=== PATIENT | male | born 1945 | race Caucasian/White ===

== ENCOUNTER 2016-10-03 15:33 | Inpatient (IN) | payer MEDICARE ==
[2016-10-03] MEDS ORDERED: Magnesium Sulfate 2 GM/100 ML BAG ONE (15:53)
[2016-10-03] MEDS ORDERED: methylPREDNISolone Sod Succ/PF 125 MG/2 ML VIAL ONE (15:53)
[2016-10-03 15:59] LABS: #Basophils 0.1 thou/uL (0.0-0.2); #Eosinphils 0.4 thou/uL (0.0-0.7); #Lymphocytes 2.2 thou/uL (1.20-3.40); #Monocytes 0.9 thou/uL (0.11-0.59); #Neutrophils 7.8 thou/uL (1.40-6.50); %Basophils 0.7 % (0.0-1.0); Mean Platelet Volume 8.2 fL (7.4-10.4); Red Blood Cell (RBC) Count 4.68 mill/uL (4.70-6.10); White Blood Cell (WBC) Count 11.4 thou/uL (4.8-10.8)
[2016-10-03 16:13] LABS: ALT (SGPT) 22 U/L (0-55); AST (SGOT) 26 U/L (5-34); Alkaline Phosphatase 124 U/L (40-150); Anion Gap 14 mmol/L (10-20); BUN (Urea Nitrogen) 17 mg/dL (8.4-25.7); Bilirubin, Total 0.5 mg/dL (0.2-1.2); Calc. Creatinine Clearance 0 mL/min (70-130); Calcium 9.4 mg/dL (7.8-10.44); Carbon Dioxide 30 mmol/L (23-31); Chloride 99 mmol/L (98-107); Estimated GFR-MDRD 72; Globulin 3.7 g/dL (2.4-3.5); Protein, Total 7.5 g/dL (5.8-8.1)
[2016-10-03] MEDS ORDERED: Sodium Chloride 0.9% 100 ML ONE (16:18)
[2016-10-03] MEDS ORDERED: cefTRIAXone\\ROCEPHIN 1 GM VIAL ONE (16:18)
[2016-10-03 16:20] LABS: Troponin I 0.011 ng/mL (< 0.028)
--- NOTE | 2016-10-03 17:48 | ERRECORD ---
[facility] EMERGENCY RECORD HPI SHORTNESS OF BREATH (15:52 JPIP) CHIEF COMPLAINT: Patient presents for evaluation of shortness of breath. HISTORIAN: History provided by patient. LOCATION: Symptoms are generalized. QUALITY: Symptoms described as tightness, an elephant is sitting on my chest. SEVERITY: Current severity of pain rated as 5/10. TIME COURSE: Gradual onset of symptoms, 4, days priror to arrival. ASSOCIATED WITH: Associated with cough, Associated with dyspnea on exertion, No associated fever, Associated with increased inhaler use, Associated with nausea, No associated vomiting, decreased appetite. EXACERBATED BY: Patient's condition exacerbated by exercise. RELIEVED BY: Patient's condition relieved by nothing. ROS (15:53 JPIP) CONSTITUTIONAL: Historian reports fatigue. CARDIOVASCULAR: Historian reports chest pain, pleuritic, Historian reports dyspnea on exertion, denies palpitations. RESPIRATORY: Historian reports cough, reports sputum. described as thick. GI: Historian reports anorexia, reports appetite changes, reports nausea, denies vomiting. MUSCULOSKELETAL: Historian denies myalgias. SKIN: Historian denies rash, denies skin changes, denies skin lesions. NEUROLOGIC: Historian denies confusion, denies mental status changes. NOTES: All systems reviewed, negative except as described above. PAST MEDICAL HISTORY MEDICAL HISTORY: Flu vaccine up to date, Tetanus immunization up to date, Pneumococcal vaccine up to date, Notes: ARTHRITIS, CHRONIC BACK AND NECK PAIN, , Past medical history includes pulmonary disease, chronic obstructive pulmonary disease. hernias. (15:52 KMOR) MALE SURGICAL HISTORY: Surgical history of hernia repair, Notes x2, BACK X4, R SHOULDER REPLACEMENT. exploratory lap. (15:52 KMOR) PSYCHIATRIC HISTORY: Psychiatric history includes, depression. (15:52 KMOR) SOCIAL HISTORY: Patient denies alcohol use, Patient denies drug use, Patient is a former tobacco user, Lives at home. (15:52 KMOR) NOTES: Nursing records reviewed, Medication list reviewed. (15:55 JPIP) KNOWN ALLERGIES Hyoscamine &a-1R&a+25V*p+0X*[id number]*c152B*c15G*c2P*p-0X&a-25V&a+1RName: Gunner Darling : 1945 M70 MedRec: [id number] AcctNum: [id number] Prepared: Sharifa Oct 03, 2016 17:46 by Interface Page 1 of 5 pMD [facility] EMERGENCY RECORD iodine Latex, Natural Rubber CURRENT MEDICATIONS Nitrostat: TABLET, SUBLINGUAL : Strength - 0.4 mg : SUBLINGUAL Patient Dose: 0.4 mg Oral As Needed. (15:43 KMOR) alfuzosin: TABLET, EXTENDED RELEASE 24 HR : Strength - 10 mg : ORAL Patient Dose: 10 mg Oral once a day. (15:43 KMOR) atorvastatin: TABLET : Strength - 80 mg : ORAL Patient Dose: 80 mg Oral once a day. (15:43 KMOR) cyproheptadine: TABLET : Strength - 4 mg : ORAL Patient Dose: 4 mg Oral once a day. (15:43 KMOR) guaiFENesin: CAPSULE : Strength - 200 mg : ORAL Patient Dose: 400 mg Oral 2 times a day. (15:43 KMOR) hydrochlorothiazide: CAPSULE : Strength - 12.5 mg : ORAL Patient Dose: 25 mg Oral once a day. (15:43 KMOR) ranitidine HCl: CAPSULE : Strength - 150 mg : ORAL Patient Dose: 150 mg Oral 2 times a day. (15:43 KMOR) eszopiclone: TABLET : Strength - 2 mg : ORAL Patient Dose: 2 mg Oral once a day (at bedtime). (15:43 KMOR) docusate sodium: CAPSULE : Strength - 50 mg : ORAL Patient Dose: 50 mg Oral. (15:46 KMOR) busPIRone: TABLET : Strength - 10 mg : ORAL Patient Dose: 10 mg Oral 2 times a day. (15:46 KMOR) aspirin: TABLET : Strength - 325 mg : ORAL Patient Dose: 81 mg Oral once a day. (17:01 KMOR) PARoxetine HCl: TABLET : Strength - 40 mg : ORAL Patient Dose: 40 mg Oral once a day. (17:03 KMOR) multivitamin: TABLET : ORAL Patient Dose: 1 tab(s) null once a day. (17:04 KMOR) Asmanex Twisthaler: AEROSOL POWDER, BREATH ACTIVATED (EA) : Strength - 220 mcg (120 doses) : INHALATION Patient Dose: 1 puff(s) Inhaler 2 times a day. (17:05 KMOR) Combivent: AEROSOL WITH ADAPTER (GRAM) : Strength - 18 mcg-103 mcg (90 mcg)/actuation : INHALATION &a-1R&a+25V*p+0X*r1573Z*c152B*c15G*c2P*p-0X&a-25V&a+1RName: Gunner Darling : 1945 M70 MedRec: [id number] AcctNum: [id number] Prepared: Sharifa Oct 03, 2016 17:46 by Interface Page 2 of 5 pMD [facility] EMERGENCY RECORD Patient Dose: 2 puff(s) Inhaler 2 times a day. (17:08 KMOR) [place]: TABLET : Strength - 10 mg-325 mg : ORAL Patient Dose: 1 tab(s) Oral 2 times a day.as needed. (17:09 KMOR) budesonide: AMPUL FOR NEBULIZATION (ML) : Strength - 0.25 mg/2 mL : INHALATION Patient Dose: 1 units Nebulize 2 times a day. (17:10 KMOR) Brovana: VIAL, NEBULIZER (ML) : Strength - 15 mcg/2 mL : INHALATION Patient Dose: 1 units Nebulize 2 times a day. (17:10 KMOR) VITAL SIGNS VITAL SIGNS: BP: 104/76, Pulse: 88, Resp: 24, Temp: 99.1 (Oral), Pain: 5, O2 sat: 92 on 3L Oxygen, Time: 10/03/2016 15:47. (15:47 KMOR) BP: 118/69, Pulse: 83, Resp: 23, Pain: 5, O2 sat: 93 on 3L Oxygen, Time: 10/03/2016 16:15. (16:15 KMOR) BP: 120/73, Pulse: 77, Resp: 22, Pain: 5, O2 sat: 91 on 3L Oxygen, Time: 10/03/2016 16:45. (16:45 KMOR) BP: 141/77, Pulse: 83, Resp: 20, Pain: 5, O2 sat: 92 on 3L Oxygen, Time: 10/03/2016 17:00. (17:00 KMOR) BP: 124/78, Pulse: 78, Resp: 19, Temp: 98.3 (Oral), Pain: 5, O2 sat: 93 on 3L Oxygen, Time: 10/03/2016 17:15. (17:15 KMOR) PHYSICAL EXAM (15:54 JPIP) CONSTITUTIONAL: Vital Signs Reviewed, Patient afebrile, Pulse normal, Blood pressure normal, Respiratory rate, increased, Abnormal Pulse Oximetry, 92% on 3L NC, Patient appears, uncomfortable, Patient alert and oriented to person, place and time, Nursing notes reviewed. HEAD: Head exam included findings of head atraumatic, normocephalic. EYES: Eye exam included findings of eyelids normal to inspection, Conjunctiva normal, Sclera normal, no periorbital ecchymosis, no periorbital edema, no periorbital erythema. NECK: Neck exam included findings of normal range of motion, Trachea midline, no carotid bruits, no jugular venous distention, no cervical adenopathy, no tenderness. RESPIRATORY CHEST: Respiratory exam included findings of, mild respiratory distress, Breath sounds not clear, No wheezing, No rhonchi, Breath sounds diminished. CARDIOVASCULAR: Cardiovascular exam included findings of heart rate regular rate and rhythm, Heart sounds normal, no murmurs, no rub. ABDOMEN MALE: Abdominal exam included findings of abdomen tender, to the right upper quadrant, mild intensity, Liver normal, Spleen normal, Distension present, no mass, no pulsatile masses, no peritoneal signs, no rigidity, no guarding, no rebound. BACK: no costovertebral angle tenderness. &a-1R&a+25V*p+0X*s4630T*c152B*c15G*c2P*p-0X&a-25V&a+1RName: Gunner Darling : 1945 M70 MedRec: [id number] AcctNum: [id number] Prepared: Sharifa Oct 03, 2016 17:46 by Interface Page 3 of 5 pMD [facility] EMERGENCY RECORD UPPER EXTREMITY: Upper extremity exam included findings of inspection normal, Range of motion normal. LOWER EXTREMITY: Lower extremity exam included findings of inspection normal, Range of motion normal, no edema. NEURO: [place] coma scale 15, Neuro exam findings include patient oriented to person, place and time, no focal motor deficits. SKIN: Skin exam included findings of skin warm, dry, and normal in color. LYMPHATIC: Lymphatic exam included findings of cervical nodes normal, Submandibular normal. PSYCHIATRIC: Psychiatric exam included findings of patient oriented to person place and time, Normal affect. EKG INTERPRETATION (15:56 JPIP) MONITOR STRIP: monitoring engineer strip interpreted by Emergency Department Physician, Monitor strip shows normal sinus rhythm, with no ectopics. 12 LEAD EKG INTERPRETATION: 12 lead EKG interpreted by Emergency Department Physician at time of study, 12 lead EKG shows normal sinus rhythm, Rate (beats per minute): 82, with no ectopics, Conduction with, complete right bundle branch block, ST segments normal, T waves, inverted, Areas affected: anterior leads, [place], left, Clinical impression:, non-specific EKG. RADIOLOGYINTERPRETATION (16:15 JPIP) CHEST: Films of the chest show, no infiltrate, no pneumothorax, no hemothorax, no pleural effusion, no cardiomegaly, chronic obstructive pulmonary disease, Other findings: left upper lobe scarring. 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 MEDICATION ADMINISTRATION SUMMARY Drug Name: Rocephin injection, Dose Ordered: 2 g, Route: IV Piggy Back, Status: Given, Time: 16:26 10/03/2016, Drug Name: magnesium sulfate in water, Dose Ordered: 2 g, Route: IV Piggy Back, Status: Given, Time: 16:05 10/03/2016, Drug Name: Normal Saline, Dose Ordered: 150 mL/hr, Route: IV Fluid Infusion, Status: Given, Time: 16:00 10/03/2016, Drug Name: *DuoNeb, Dose Ordered: 3 mL, Route: Nebulize, Status: Given, Time: 15:55 10/03/2016, Drug Name: Solu-MEDROL injection, Dose Ordered: 125 mg, Route: IV Push, Status: Given, Time: 15:54 10/03/2016, *Additional information available in notes, Detailed record available in Medication Service section. DOCTOR NOTES (16:11 JPIP) TEXT: patient asked to stop the neb treatment, stating it makes his throat feel tight. &a-1R&a+25V*p+0X*c1796Q*c152B*c15G*c2P*p-0X&a-25V&a+1RName: Gunner Darling : 1945 M70 MedRec: [id number] AcctNum: [id number] Prepared: Sharifa Oct 03, 2016 17:46 by Interface Page 4 of 5 pMD [facility] EMERGENCY RECORD PROBLEM LIST No recorded problems DIAGNOSIS (17:01 JPIP) FINAL: PRIMARY: copd exacerbation. PRESCRIPTION No recorded prescriptions DISPOSITION PATIENT: Disposition Type: Admit, Disposition: [facility], Disposition Transport: Stretcher, Condition: Good. (17:01 JPIP) Patient left the department. (17:42 KMOR) [place]: JPIP=DO Lopez Joseph KMOR=STACEY Ferris, Leyda &a-1R&a+25V*p+0X*[id number]*c152B*c15G*c2P*p-0X&a-25V&a+1RName: Gunner Darling : 1945 M70 MedRec: [id number] AcctNum: [id number] Prepared: Sharifa Oct 03, 2016 17:46 by Interface Page 5 of 5 pMD MTDD
--- NOTE | 2016-10-03 17:54 | PICIS ---
[facility] EMERGENCY RECORD COMMUNICATIONS COMMUNICATIONS: Notes: Dr. Nichols to Admit. (16:50 RHIC) Physician, contacted/paged at [phone], Reason for notification admission, Dr Nichols accepts. (16:57 JPIP) TRIAGE (15:35 KMOR) TRIAGE NOTES: increases sob and cp x 3-4 days. (15:35 KMOR) PATIENT: NAME: Gunner Darling, AGE: 70, GENDER: male, : Sat 1945, TIME OF GREET: Sun Oct 03, 2016 15:34, PREFERRED LANGUAGE: Urdu, ETHNICITY: Not or , ECODE BILLING MAP: [facility], SSN: [id number], Zip Code: [address], KG WEIGHT: 79.38, PHONE: , , , PERSON ID: [id number], PAYMENT: X Medicare, PCP: DO NICHOLS KRISTEL. (15:35 KMOR) COMPLAINT: shortnes of breath. (15:35 KMOR) ADMISSION: URGENCY: 2 Emergent, ADMISSION SOURCE: Home, TRANSPORT: CAR, BED: ER -01. (15:35 KMOR) ASSESSMENT: Assessment: A&OX4. RR EVEN, Symptoms began 3 days ago. (15:52 KMOR) PAIN: Patient complains of pain described as, aching, on a scale 0-10 patient rates pain as 5, Location CHEST. (15:52 KMOR) IMMUNIZATIONS: Flu vaccine up to date, Tetanus not up to date, Pneumococcal vaccine up to date. (15:52 KMOR) SIRS SCORING: Heart Rate 55-109 (0), Temp range 96.8-101.1 (0), respiratory rate 12-24 (0), Mental Status altered: no (0), Infection or Suspected Infection: No. (15:52 KMOR) TRIAGE SCREENING: Patient denies suicidal ideation, Patient denies presence of domestic violence. (15:52 KMOR) TREATMENTS IN PROGRESS: Medications Given, NEB AT 0900. (15:52 KMOR) PROVIDERS: TRIAGE NURSE: Leyda Ferris RN. (15:35 KMOR) PREVIOUS VISIT ALLERGIES: Hyoscamine, iodine. (15:35 KMOR) Hyoscamine, iodine. (15:52 KMOR) KNOWN ALLERGIES Hyoscamine iodine Latex, Natural Rubber CURRENT MEDICATIONS Nitrostat: TABLET, SUBLINGUAL : Strength - 0.4 mg : SUBLINGUAL Patient Dose: 0.4 mg Oral As Needed. (15:43 KMOR) alfuzosin: TABLET, EXTENDED RELEASE 24 HR : Strength - 10 mg : ORAL Patient Dose: 10 mg Oral once a day. (15:43 KMOR) atorvastatin: TABLET : Strength - 80 mg : ORAL &a-1R&a+25V*p+0X*m2173X*c152B*c15G*c2P*p-0X&a-25V&a+1RName: Gunner Darling : 1945 M70 MedRec: [id number] AcctNum: [id number] Prepared: Sharifa Oct 03, 2016 17:52 by Interface Page 1 of 14 pMD [facility] EMERGENCY RECORD Patient Dose: 80 mg Oral once a day. (15:43 KMOR) cyproheptadine: TABLET : Strength - 4 mg : ORAL Patient Dose: 4 mg Oral once a day. (15:43 KMOR) guaiFENesin: CAPSULE : Strength - 200 mg : ORAL Patient Dose: 400 mg Oral 2 times a day. (15:43 KMOR) hydrochlorothiazide: CAPSULE : Strength - 12.5 mg : ORAL Patient Dose: 25 mg Oral once a day. (15:43 KMOR) ranitidine HCl: CAPSULE : Strength - 150 mg : ORAL Patient Dose: 150 mg Oral 2 times a day. (15:43 KMOR) eszopiclone: TABLET : Strength - 2 mg : ORAL Patient Dose: 2 mg Oral once a day (at bedtime). (15:43 KMOR) docusate sodium: CAPSULE : Strength - 50 mg : ORAL Patient Dose: 50 mg Oral. (15:46 KMOR) busPIRone: TABLET : Strength - 10 mg : ORAL Patient Dose: 10 mg Oral 2 times a day. (15:46 KMOR) aspirin: TABLET : Strength - 325 mg : ORAL Patient Dose: 81 mg Oral once a day. (17:01 KMOR) PARoxetine HCl: TABLET : Strength - 40 mg : ORAL Patient Dose: 40 mg Oral once a day. (17:03 KMOR) multivitamin: TABLET : ORAL Patient Dose: 1 tab(s) null once a day. (17:04 KMOR) Asmanex Twisthaler: AEROSOL POWDER, BREATH ACTIVATED (EA) : Strength - 220 mcg (120 doses) : INHALATION Patient Dose: 1 puff(s) Inhaler 2 times a day. (17:05 KMOR) Combivent: AEROSOL WITH ADAPTER (GRAM) : Strength - 18 mcg-103 mcg (90 mcg)/actuation : INHALATION Patient Dose: 2 puff(s) Inhaler 2 times a day. (17:08 KMOR) [place]: TABLET : Strength - 10 mg-325 mg : ORAL Patient Dose: 1 tab(s) Oral 2 times a day.as needed. (17:09 KMOR) budesonide: AMPUL FOR NEBULIZATION (ML) : Strength - 0.25 mg/2 mL : INHALATION Patient Dose: 1 units Nebulize 2 times a day. (17:10 KMOR) Brovana: VIAL, NEBULIZER (ML) : Strength - 15 mcg/2 mL : INHALATION Patient Dose: 1 units Nebulize 2 times a day. (17:10 KMOR) &a-1R&a+25V*p+0X*u6128M*c152B*c15G*c2P*p-0X&a-25V&a+1RName: Gunner Darling : 1945 M70 MedRec: [id number] AcctNum: [id number] Prepared: Sharifa Oct 03, 2016 17:52 by Interface Page 2 of 14 pMD [facility] EMERGENCY RECORD VITAL SIGNS VITAL SIGNS: BP: 104/76, Pulse: 88, Resp: 24, Temp: 99.1 (Oral), Pain: 5, O2 sat: 92 on 3L Oxygen, Time: 10/03/2016 15:47. (15:47 KMOR) BP: 118/69, Pulse: 83, Resp: 23, Pain: 5, O2 sat: 93 on 3L Oxygen, Time: 10/03/2016 16:15. (16:15 KMOR) BP: 120/73, Pulse: 77, Resp: 22, Pain: 5, O2 sat: 91 on 3L Oxygen, Time: 10/03/2016 16:45. (16:45 KMOR) BP: 141/77, Pulse: 83, Resp: 20, Pain: 5, O2 sat: 92 on 3L Oxygen, Time: 10/03/2016 17:00. (17:00 KMOR) BP: 124/78, Pulse: 78, Resp: 19, Temp: 98.3 (Oral), Pain: 5, O2 sat: 93 on 3L Oxygen, Time: 10/03/2016 17:15. (17:15 KMOR) NURSING ASSESSMENT: CARDIOVASCULAR (16:14 KMOR) CONSTITUTIONAL: Patient arrives, via hospital wheelchair, Unsteady gait, Assistance to cart, History obtained from patient, Patient appears, uncomfortable, Patient cooperative, Patient alert, Oriented to person, place and time, Skin warm, Skin dry, Skin normal in color, Mucous membranes pink, Mucous membranes moist, Patient is well-groomed, Patient complains of Chest tightness, Patient reports increased shortness of breath and chest tightness over past 3-4 days. Increased productive cough and chills. Nausea, vomiting 1 day ago. PAIN: aching pain, substernal, on a scale 0-10 patient rates pain as 5, Pain exacerbated by, coughing. CARDIOVASCULAR: Cardiovascular assessment findings include heart rate normal, Heart rhythm normal sinus, Heart sounds normal, S1, S2, Left radial pulse +3(easily palpated, considered normal), Right radial pulse +3(easily palpated, considered normal), Left dorsalis pedis pulse +3(easily palpated, considered normal), Right dorsalis pedis pulse +3(easily palpated, considered normal), Associated with dyspnea, with exertion, no associated palpitations, Associated with weakness. RESPIRATORY/CHEST: Lungs auscultated, Breath sounds diminished, Breath sounds with rales, Respiratory assessment findings include respiratory effort, shallow, tachypneic, Converses, in short phrases, Signs of distress, tripod positioning, in mild distress, no retractions noted, no cyanosis, Associated with cough, dry, no associated fever, to bilateral lower lobes. NURSING ASSESSMENT: FALL RISK (16:18 KMOR) FALL RISK: Fall risk assessment findings include: no history of falls (0), No bed rest greater than 2 days (0), No use of level of consciousness altering agents with mentation or cognitive changes (0), No change in blood pressure (0), No sensory deficits (0), Impaired mobility (3), No neurologic diagnosis (0), No elimination problems (0), No confusion (0), Total score 3. NURSING ASSESSMENT: SKIN (17:12 KMOR) &a-1R&a+25V*p+0X*n6846P*c152B*c15G*c2P*p-0X&a-25V&a+1RName: Gunner Darling : 1945 M70 MedRec: [id number] AcctNum: [id number] Prepared: Sharifa Oct 03, 2016 17:52 by Interface Page 3 of 14 pMD [facility] EMERGENCY RECORD SKIN: Skin assessment findings include skin warm, Skin dry, Skin normal in color, Inspection findings include: No pressure ulcer to the shoulder, Inspection findings include no pressure ulcer to the elbow, Inspection findings include no pressure ulcers to the hip, Inspection findings include no pressure ulcer to the sacrum, Inspection findings include no pressure ulcer to the heel, Inspection findings include no pressure ulcer, Inspection findings include no pressure ulcer. NITZA SCALE: (3) Sensory perception slightly limited, (3) Skin is occasionally moist, (3) Patient walks occasionally, (3) Slightly limited mobility, (3) Adequate nutrition, (2) Patient has potential problem moving, Nitza Risk Total: 17. NURSING PROCEDURE: ADMISSION (17:20 KMOR) ADMISSION: Patient admitted to a medical-surgical unit, room number 116, Report called to, STACEY Gaines, Provided opportunity to answer questions, Admission orders received and completed, Report called at 1720, Acuity level emergent, Transported via wheelchair, Accompanied by emergency department collection systems technician, Transported with oxygen, Transported with disposable blood pressure cuff, Transported with IV Fluid(s) infusing. BELONGINGS: Belongings remain with patient, Valuables remain with patient. NURSING PROCEDURE: BEDSIDE RADIOLOGY (16:00 KMOR) PATIENT IDENTIFIER: Patient actively involved in identification process, Patient's identity verified by patient stating name, Patient's identity verified by patient stating date. BEDSIDE RADIOLOGY: Portable chest x-ray performed. NOTES: Patient tolerated procedure well. NURSING PROCEDURE: BEDSIDE SIRS TESTING (16:17 KMOR) SCORES: Heart Rate 55-109 (0), Temp range 96.8-101.1 (0), respiratory rate 12-24 (0), Latest WBC 3-14.9 (0), Mental Status altered: no (0), Yes, Infection or Suspected Infection. NURSING PROCEDURE: FINAL CANOE INSPECTOR (15:58 KMOR) PATIENT IDENTIFIER: Patient actively involved in identification process, Patient's identity verified by patient stating name, Patient's identity verified by patient stating date. FINAL CANOE INSPECTOR: Cardiac monitoring indicated for complaint of chest pain, Cardiac monitoring indicated for SHORTNESS OF BREATH, Patient placed on shelter monitor, Heart rate: 90, Patient placed on non-invasive blood pressure monitor, with disposable blood pressure cuff applied, Patient placed on continuous pulse oximetry, Adult/pediatric oxisensor applied, Oxygen saturation 92%. NOTES: Patient tolerated procedure well. NURSING PROCEDURE: EKG CHART (15:37 KMOR) PATIENT IDENTIFIER: Patient actively involved in identification &a-1R&a+25V*p+0X*n1837B*c152B*c15G*c2P*p-0X&a-25V&a+1RName: Gunner Darling : 1945 M70 MedRec: [id number] AcctNum: [id number] Prepared: Sharifa Oct 03, 2016 17:52 by Interface Page 4 of 14 D [facility] EMERGENCY RECORD process, Patient's identity verified by patient stating name, Patient's identity verified by patient stating date. EKG: EKG indicated for complaint of chest pain, 12 lead EKG performed on the left chest, done by STACEY crabtree, first EKG. FOLLOW-UP: After procedure, EKG for interpretation given to Dr. Lopez. NOTES: Patient tolerated procedure well. NURSING PROCEDURE: IV (15:40 RHIC) IV SITE 1: IV therapy indicated for medication administration, IV established, to the left forearm, using an 18 gauge catheter, in two attempts, IV site prepped with CHLOPREP, Labs drawn at time of placement, labeled in the presence of the patient and sent to lab, Blood cultures drawn at time of placement, labeled in the presence of the patient and sent to lab. FOLLOW-UP SITE 1: After procedure, 2x3 ensure dressing applied. NURSING PROCEDURE: LAB DRAW (16:13 KMOR) PATIENT IDENTIFIER: Patient actively involved in identification process, Patient's identity verified by patient stating name, Patient's identity verified by patient stating date. LAB DRAW: Subsequent lab draw performed, Notes: BLOOD CULTURE X 2 OBTAINED. FOLLOW-UP: After procedure, dressing applied to site. NOTES: Patient tolerated procedure well. NURSING PROCEDURE: NURSE NOTES NURSES NOTES: Notes: After 1/2 breathing treatment patient stated he couldn't deal with it right now. Dr. Lopez notified and rest of breathing treatment held. (16:17 KMOR) Notes: Patient sitting up on side for bed for comfort. Family at bedside. (16:32 KMOR) Notes: Clement Horvath contacted for possible admission to floor. (16:52 KMOR) NURSING PROCEDURE: OXYGEN THERAPY (15:35 KMOR) PATIENT IDENTIFIER: Patient actively involved in identification process, Patient's identity verified by patient stating name, Patient's identity verified by patient stating date. OXYGEN THERAPY: Oxygen therapy indicated for desaturation, Oxygen therapy indicated for respiratory distress, Prior to procedure, breath sounds with rales, to bilateral lower lobes, Prior to procedure, breath sounds without rhonchi, Oxygen saturation 92%, by adult/pediatric oxisensor, multiple pulse oximetry reading, 3L oxygen given, via nasal cannula applied, Applied by STACEY Crabtree, Wears 3L everyday. ORDER DETAILS Order Name: B type Natriuretic Peptide, Status: Active, Time: 15:48 10/03/2016, User: PAUL, &a-1R&a+25V*p+0X*c3821G*c152B*c15G*c2P*p-0X&a-25V&a+1RName: Gunner Darling : 1945 M70 MedRec: [id number] AcctNum: [id number] Prepared: Sharifa Oct 03, 2016 17:52 by Interface Page 5 of 14 pMD [facility] EMERGENCY RECORD - Ordered for: DO Lopez Joseph, - Entered by: DO Lopez Joseph - Sharifa Oct 03, 2016 15:48, - Quantity: 1, Order Name: FINAL CANOE INSPECTOR ED, Status: Done, Time: 15:50 10/03/2016, User: RASHID, - Ordered for: DO Lopez Joseph, - Entered by: DO Lopez Joseph - Mchenry Oct 03, 2016 15:48, - Quantity: 1, Order Name: Cardiac Profile w/CKMB & Troponin - I, Status: Active, Time: 15:48 10/03/2016, User: PAUL, - Ordered for: DO Lopez Joseph, - Entered by: DO Lopez Joseph - Mchenry Oct 03, 2016 15:48, - Quantity: 1, Order Name: CBC with Differential, Status: Active, Time: 15:48 10/03/2016, User: PAUL, - Ordered for: DO Lopez Joseph, - Entered by: DO Lopez Joseph - Mchenry Oct 03, 2016 15:48, - Quantity: 1, Order Name: Comprehensive Metabolic Panel, Status: Active, Time: 15:48 10/03/2016, User: PAUL, - Ordered for: DO Lopez Joseph, - Entered by: DO Lopez Joseph [facility] Oct 03, 2016 15:48, - Quantity: 1, Order Name: Culture, Blood, Status: Active, Time: 15:48 10/03/2016, User: PAUL, - Ordered for: DO Lopez Joseph, - Entered by: DO Lopez Joseph - Mchenry Oct 03, 2016 15:48, - Quantity: 1, Order Name: Culture, Urine, Status: Active, Time: 16:59 10/03/2016, User: PAUL, - Ordered for: DO Lopez Joseph, - Entered by: DO Lopez Joseph [facility] Oct 03, 2016 16:59, - Quantity: 1, Order Name: EKG 12 Lead in Emergency Room, Status: Active, Time: 15:48 10/03/2016, User: PAUL, - Ordered for: DO Lopez Joseph, - Entered by: DO Lopez Joseph [facility] Oct 03, 2016 15:48, - Quantity: 1, Order Name: ERRT * Smal Vol Neb Initial Trmt, Status: Active, Time: 15:48 10/03/2016, User: PAUL, - Ordered for: DO Lopez Joseph, - Entered by: DO Lopez Joseph - Mchenry Oct 03, 2016 15:48, - Quantity: 1, Order Name: ERRT Oxygen Usage ER, Status: Active, Time: 15:48 10/03/2016, User: PAUL, - Ordered for: DO Lopez Joseph, - Entered by: DO Lopez Joseph - Sharifa Oct 03, 2016 15:48, - Quantity: 1, Order Name: ERRT Pulse Oximeter ER, Status: Active, Time: 15:48 10/03/2016, User: PAUL, - Ordered for: DO Lopez Joseph, &a-1R&a+25V*p+0X*i5702H*c152B*c15G*c2P*p-0X&a-25V&a+1RName: Gunner Darling : 1945 M70 MedRec: [id number] AcctNum: [id number] Prepared: Sharifa Oct 03, 2016 17:52 by Interface Page 6 of 14 pMD [facility] EMERGENCY RECORD - Entered by: DO Lopez Joseph - Sun Oct 03, 2016 15:48, - Quantity: 1, Order Name: Lactic Acid with repeat, Status: Active, Time: 16:26 10/03/2016, User: PAUL, - Ordered for: DO Lopez Joseph, - Entered by: DO Lopez Joseph - Sun Oct 03, 2016 16:26, - Quantity: 1, Order Name: SALINE LOCK, Status: Done, Time: 15:50 10/03/2016, User: RASHID, - Ordered for: DO Lopez Joseph, - Entered by: DO Lopez Joseph - Sun Oct 03, 2016 15:48, - Quantity: 1, Order Name: Urinalysis w/ Rflx Microscopic, Status: Active, Time: 16:59 10/03/2016, User: PAUL, - Ordered for: DO Lopez Joseph, - Entered by: DO Lopez Joseph - Sun Oct 03, 2016 16:59, - Quantity: 1, Order Name: XR Chest 1 View Portable, Status: Active, Time: 15:48 10/03/2016, User: PAUL, - Ordered for: DO Lopez Joseph, - Entered by: DO Lopez Joseph - Sun Oct 03, 2016 15:48, - Quantity: 1. MEDICATION ADMINISTRATION SUMMARY Drug Name: Rocephin injection, Dose Ordered: 2 g, Route: IV Piggy Back, Status: Given, Time: 16:26 10/03/2016, Drug Name: magnesium sulfate in water, Dose Ordered: 2 g, Route: IV Piggy Back, Status: Given, Time: 16:05 10/03/2016, Drug Name: Normal Saline, Dose Ordered: 150 mL/hr, Route: IV Fluid Infusion, Status: Given, Time: 16:00 10/03/2016, Drug Name: *DuoNeb, Dose Ordered: 3 mL, Route: Nebulize, Status: Given, Time: 15:55 10/03/2016, Drug Name: Solu-MEDROL injection, Dose Ordered: 125 mg, Route: IV Push, Status: Given, Time: 15:54 10/03/2016, *Additional information available in notes, Detailed record available in Medication Service section. MEDICATION SERVICE DuoNeb: Order: DuoNeb (ipratropium bromide/albuterol sulfate) - Dose: 3 mL : Nebulize POTENTIAL ALLERGY REACTION: 'Hyoscamine [atropine/atropine sulfate/hyoscyamine/hyoscyamine sulfate/scopolamine/scopolamine hydrobromide]' - Benefits outweigh risks Schedule: Now Notes: (0.5mg Ipratropium [place]/3mg Albuterol Sulfate = 3ml) Ordered by: Zion Lopez DO Entered by: STACEY Echavarria Oct 03, 2016 16:02 Documented as given by: STACEY Echavarria Oct 03, 2016 15:55 Patient, Medication, Dose, Route and Time verified prior to administration. &a-1R&a+25V*p+0X*b2155W*c152B*c15G*c2P*p-0X&a-25V&a+1RName: Gunner Darling : 1945 M70 MedRec: [id number] AcctNum: [id number] Prepared: Sharifa Oct 03, 2016 17:52 by Interface Page 7 of 14 pMD [facility] EMERGENCY RECORD Amount given: 3ml, Site: Medication administered via Hand-held nebulizer, With oxygen, Correct patient, time, route, dose and medication confirmed prior to administration, Patient advised of actions and side-effects prior to administration, Allergies confirmed and medications reviewed prior to administration, Patient in position of comfort, Side rails up, Cart in lowest position, Family at bedside. : Follow Up : Response assessment performed, No signs or symptoms of allergic reaction noted, No change in symptoms. (16:16 KMOR) magnesium sulfate in water: Order: magnesium sulfate in water (magnesium sulfate/water for injection,sterile) - Dose: 2 g : IV Piggy Back Schedule: Now Ordered by: Zion Lopez DO Entered by: Zion Lopez DO Mchenry Oct 03, 2016 15:49 , Acknowledged by: STACEY Echavarria Oct 03, 2016 15:52 Documented as given by: STACEY Echavarria Oct 03, 2016 16:05 Patient, Medication, Dose, Route and Time verified prior to administration. Amount given: 2g, IV SITE #1 IVPB or drip, initial infusion, Premixed, via primary tubing, on an IV pump, Awake and alert- acceptable, Connections checked prior to administration, Line traced prior to administration, Catheter placement confirmed via flush prior to administration, IV site without signs or symptoms of infiltration during medication administration, No swelling during administration, No drainage during administration, IV flushed after administration, Correct patient, time, route, dose and medication confirmed prior to administration, Patient advised of actions and side-effects prior to administration, Allergies confirmed and medications reviewed prior to administration, Patient in position of comfort, Side rails up, Cart in lowest position, Family at bedside. : Follow Up : _IV SITE #1:_, Medication infusion discontinued, on TueOct 03, 2016 16:53, 50 minutes, ., Total amount infused: 2g. (16:57 RHIC) Normal Saline: Order: Normal Saline (0.9 % sodium chloride) - Dose: 150 mL/hr : IV Fluid Infusion Ordered by: Zion Lopez DO Entered by: DO Sharifa Sanchez Oct 03, 2016 15:51 , Acknowledged by: Leyda Ferris RN Mchenry Oct 03, 2016 15:52 Documented as given by: Leyda Ferris RN Mchenry Oct 03, 2016 16:00 Patient, Medication, Dose, Route and Time verified prior to administration. Amount given: 1000ml, IV SITE #1 IV fluids established for hydration, IV SITE #1 into left wrist, IV SITE #1 1st bag hung, amount 1 Liter hung, IV SITE #1 Rate of infusion (non-bolus) Infusing at 150 ml/hr, IV SITE #1 on IV pump, Awake and alert- acceptable, Connections checked prior to administration, Line traced prior to administration, Catheter placement confirmed via flush prior to administration, IV site without signs or symptoms of infiltration during medication administration, No swelling during administration, &a-1R&a+25V*p+0X*i1066O*c152B*c15G*c2P*p-0X&a-25V&a+1RName: Gunner Darling : 1945 M70 MedRec: [id number] AcctNum: [id number] Prepared: TueOct 03, 2016 17:52 by Interface Page 8 of 14 pMD [facility] EMERGENCY RECORD No drainage during administration, IV flushed after administration, Correct patient, time, route, dose and medication confirmed prior to administration, Patient advised of actions and side-effects prior to administration, Allergies confirmed and medications reviewed prior to administration, Patient in position of comfort, Side rails up, Cart in lowest position, Family at bedside. : Follow Up : _IV SITE #1:_, Medication infusion discontinued, on TueOct 03, 2016 17:40, Total infusion time IV site 1 1 hour, 40 minutes, ., Total amount infused: 225ml. (17:43 KMOR) Rocephin injection: Order: Rocephin injection (ceftriaxone sodium) - Dose: 2 g : IV Piggy Back Schedule: Now Ordered by: Zion Lopez DO Entered by: Zion Lopez DO Mchenry Oct 03, 2016 16:16 , Acknowledged by: Leyda Ferris RN [place] Oct 03, 2016 16:18 Documented as given by: STACEY Echavarria Oct 03, 2016 16:26 Patient, Medication, Dose, Route and Time verified prior to administration. Amount given: 2g, IV SITE #1 IVPB or drip, subsequent infusion, IVPB mixed in: 100ml, Fluid: 0.9NS, via primary tubing, on an IV pump, Verified Blood Culture collection prior to Antibiotic administration, Connections checked prior to administration, Line traced prior to administration, Catheter placement confirmed via flush prior to administration, IV site without signs or symptoms of infiltration during medication administration, No swelling during administration, No drainage during administration, IV flushed after administration, Correct patient, time, route, dose and medication confirmed prior to administration, Patient advised of actions and side-effects prior to administration, Allergies confirmed and medications reviewed prior to administration, Patient in position of comfort, Side rails up, Cart in lowest position, Family at bedside. : Follow Up : _IV SITE #1:_, Medication infusion discontinued, on Mchenry Oct 03, 2016 16:53, 30 minutes, ., Total amount infused: 2g. (16:58 RHIC) Solu-MEDROL injection: Order: Solu-MEDROL injection (methylprednisolone sod succ) - Dose: 125 mg : IV Push Ordered by: Zion Lopez DO Entered by: Zion Lopez DO Mchenry Oct 03, 2016 15:50 , Acknowledged by: Leyda Ferris RN [place] Oct 03, 2016 15:52 Documented as given by: Leyda Ferris RN [place] Oct 03, 2016 15:54 Patient, Medication, Dose, Route and Time verified prior to administration. Amount given: 125mg, IV SITE #1 IVP, initial medication, Slowly, Connections checked prior to administration, Line traced prior to administration, Catheter placement confirmed via flush prior to administration, IV site without signs or symptoms of infiltration during medication administration, No swelling during administration, No drainage during administration, IV flushed after administration, Correct patient, time, route, dose and medication confirmed prior to administration, Patient advised of actions and side-effects prior to administration, Allergies confirmed and medications reviewed prior to &a-1R&a+25V*p+0X*c8212O*c152B*c15G*c2P*p-0X&a-25V&a+1RName: Gunner Darling : 1945 M70 MedRec: [id number] AcctNum: [id number] Prepared: Mchenry Oct 03, 2016 17:52 by Interface Page 9 of 14 pMD [facility] EMERGENCY RECORD administration, Patient in position of comfort, Side rails up, Cart in lowest position, Family at bedside. : Follow Up : Decreased symptoms, _IV SITE #1:_. (16:58 RHIC) HPI SHORTNESS OF BREATH (15:52 JPIP) CHIEF COMPLAINT: Patient presents for evaluation of shortness of breath. HISTORIAN: History provided by patient. LOCATION: Symptoms are generalized. QUALITY: Symptoms described as tightness, an elephant is sitting on my chest. SEVERITY: Current severity of pain rated as 5/10. TIME COURSE: Gradual onset of symptoms, 4, days priror to arrival. ASSOCIATED WITH: Associated with cough, Associated with dyspnea on exertion, No associated fever, Associated with increased inhaler use, Associated with nausea, No associated vomiting, decreased appetite. EXACERBATED BY: Patient's condition exacerbated by exercise. RELIEVED BY: Patient's condition relieved by nothing. ROS (15:53 JPIP) CONSTITUTIONAL: Historian reports fatigue. CARDIOVASCULAR: Historian reports chest pain, pleuritic, Historian reports dyspnea on exertion, denies palpitations. RESPIRATORY: Historian reports cough, reports sputum. described as thick. GI: Historian reports anorexia, reports appetite changes, reports nausea, denies vomiting. MUSCULOSKELETAL: Historian denies myalgias. SKIN: Historian denies rash, denies skin changes, denies skin lesions. NEUROLOGIC: Historian denies confusion, denies mental status changes. NOTES: All systems reviewed, negative except as described above. PAST MEDICAL HISTORY MEDICAL HISTORY: Flu vaccine up to date, Tetanus immunization up to date, Pneumococcal vaccine up to date, Notes: ARTHRITIS, CHRONIC BACK AND NECK PAIN, , Past medical history includes pulmonary disease, chronic obstructive pulmonary disease. hernias. (15:52 KMOR) MALE SURGICAL HISTORY: Surgical history of hernia repair, Notes x2, BACK X4, R SHOULDER REPLACEMENT. exploratory lap. (15:52 KMOR) PSYCHIATRIC HISTORY: Psychiatric history includes, depression. (15:52 KMOR) SOCIAL HISTORY: Patient denies alcohol use, Patient denies drug use, Patient is a former tobacco user, Lives at home. (15:52 KMOR) &a-1R&a+25V*p+0X*n7154H*c152B*c15G*c2P*p-0X&a-25V&a+1RName: Gunner Darling : 1945 M70 MedRec: [id number] AcctNum: [id number] Prepared: Sharifa Oct 03, 2016 17:52 by Interface Page 10 of 14 pMD [facility] EMERGENCY RECORD NOTES: Nursing records reviewed, Medication list reviewed. (15:55 JPIP) PHYSICAL EXAM (15:54 JPIP) CONSTITUTIONAL: Vital Signs Reviewed, Patient afebrile, Pulse normal, Blood pressure normal, Respiratory rate, increased, Abnormal Pulse Oximetry, 92% on 3L NC, Patient appears, uncomfortable, Patient alert and oriented to person, place and time, Nursing notes reviewed. HEAD: Head exam included findings of head atraumatic, normocephalic. EYES: Eye exam included findings of eyelids normal to inspection, Conjunctiva normal, Sclera normal, no periorbital ecchymosis, no periorbital edema, no periorbital erythema. NECK: Neck exam included findings of normal range of motion, Trachea midline, no carotid bruits, no jugular venous distention, no cervical adenopathy, no tenderness. RESPIRATORY CHEST: Respiratory exam included findings of, mild respiratory distress, Breath sounds not clear, No wheezing, No rhonchi, Breath sounds diminished. CARDIOVASCULAR: Cardiovascular exam included findings of heart rate regular rate and rhythm, Heart sounds normal, no murmurs, no rub. ABDOMEN MALE: Abdominal exam included findings of abdomen tender, to the right upper quadrant, mild intensity, Liver normal, Spleen normal, Distension present, no mass, no pulsatile masses, no peritoneal signs, no rigidity, no guarding, no rebound. BACK: no costovertebral angle tenderness. UPPER EXTREMITY: Upper extremity exam included findings of inspection normal, Range of motion normal. LOWER EXTREMITY: Lower extremity exam included findings of inspection normal, Range of motion normal, no edema. NEURO: [place] coma scale 15, Neuro exam findings include patient oriented to person, place and time, no focal motor deficits. SKIN: Skin exam included findings of skin warm, dry, and normal in color. LYMPHATIC: Lymphatic exam included findings of cervical nodes normal, Submandibular normal. PSYCHIATRIC: Psychiatric exam included findings of patient oriented to person place and time, Normal affect. LAB INTERPRETATION (16:58 JPIP) INTERPRETATION: I reviewed the lab results, All labs normal except as noted below, CBC abnormal, White blood cell count elevated, Chemistry normal, Cardiac enzymes normal, Liver functions normal, Lactate normal. EVENTS TRANSFER: Triage to Emergency Emergency Room -01. (15:36 KMOR) &a-1R&a+25V*p+0X*b8955H*c152B*c15G*c2P*p-0X&a-25V&a+1RName: Gunner Darling : 1945 M70 MedRec: [id number] AcctNum: [id number] Prepared: Sharifa Oct 03, 2016 17:52 by Interface Page 11 of 14 pMD [facility] EMERGENCY RECORD Removed from Emergency Emergency Room -01. (17:42 KMOR) RADIOLOGYINTERPRETATION (16:15 JPIP) CHEST: Films of the chest show, no infiltrate, no pneumothorax, no hemothorax, no pleural effusion, no cardiomegaly, chronic obstructive pulmonary disease, Other findings: left upper lobe scarring. 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 EKG INTERPRETATION (15:56 JPIP) MONITOR STRIP: secured entrance monitor strip interpreted by Emergency Department Physician, Monitor strip shows normal sinus rhythm, with no ectopics. 12 LEAD EKG INTERPRETATION: 12 lead EKG interpreted by Emergency Department Physician at time of study, 12 lead EKG shows normal sinus rhythm, Rate (beats per minute): 82, with no ectopics, Conduction with, complete right bundle branch block, ST segments normal, T waves, inverted, Areas affected: anterior leads, [place], left, Clinical impression:, non-specific EKG. O2SAT INTERPRETATION (15:55 JPIP) O2SAT: Continuous pulse oximetry, Oxygen saturation 92%, on 3L, via nasal cannula, Oxygen saturation interpretation: Low normal, Intervention required: patient observed, Intervention required: Oxygen administration, Intervention required: aerosol treatment. DOCTOR NOTES (16:11 JPIP) TEXT: patient asked to stop the neb treatment, stating it makes his throat feel tight. PROBLEM LIST No recorded problems DIAGNOSIS (17:01 JPIP) FINAL: PRIMARY: copd exacerbation. DISPOSITION PATIENT: Disposition Type: Admit, Disposition: [facility], Disposition Transport: Stretcher, Condition: Good. (17:01 JPIP) Patient left the department. (17:42 KMOR) PRESCRIPTION No recorded prescriptions IMAGING *EKG: Image captured from scanner. (16:10 KMOR) MONITOR STRIPS: Image captured from scanner. (16:31 KMOR) MEDICATION LIST: Image captured from scanner. (17:10 KMOR) &a-1R&a+25V*p+0X*q6513T*c152B*c15G*c2P*p-0X&a-25V&a+1RName: Gunner Darling : 1945 M70 MedRec: [id number] AcctNum: [id number] Prepared: Sharifa Oct 03, 2016 17:52 by Interface Page 12 of 14 pMD [facility] EMERGENCY RECORD Page 2 added. Image captured from scanner. (17:11 KMOR) ADMISSION ORDERS: Image captured from scanner. (17:11 KMOR) *SUPPLY CHARGE SHEET: Image captured from scanner. (17:44 KMOR) RESULTS LABORATORY: CBC with Differential Collection DT: Sharifa Oct 03, 2016 15:55, *White Blood Cell (WBC) Count 11.4 - H thou/uL, Range (4.8-10.8), *Red Blood Cell (RBC) Count 4.68 - L mill/uL, Range (4.70-6.10), Hemoglobin 15.2 g/dL, Range (14.0-18.0), Hematocrit 45.0 %, Range (42.0-52.0), *Mean Corpuscular Volume 96.1 - H fl, Range (80.0-94.0), *Mean Corpuscular Hemoglobin 32.4 - H pg, Range (27.0-31.0), Mean Corpuscular HGB CONC 33.7 g/dL, Range (32.0-36.0), RBC Distribution Width 12.3 %, Range (11.5-14.5), Platelet Count 233 thou/uL, Range (130-400), Mean Platelet Volume 8.2 fL, Range (7.4-10.4), %Neutrophils 68.1 %, Range (42.0-75.0), *%Lymphocytes 19.2 - L %, Range (21.0-51.0), %Monocytes 8.0 %, Range (0.0-10.0), %Eosinophils 4.0 %, Range (0.0-10.0), %Basophils 0.7 %, Range (0.0-1.0), *#Neutrophils 7.8 - H thou/uL, Range (1.40-6.50), #Lymphocytes 2.2 thou/uL, Range (1.20-3.40), *#Monocytes 0.9 - H thou/uL, Range (0.11-0.59), #Eosinphils 0.4 thou/uL, Range (0.0-0.7), #Basophils 0.1 thou/uL, Range (0.0-0.2). (16:09 JP) Comprehensive Metabolic Panel Collection DT: Sharifa Oct 03, 2016 15:55, Sodium 139 mmol/L, Range (136-145), Potassium 3.7 mmol/L, Range (3.5-5.1), Chloride 99 mmol/L, Range (98-107), Carbon Dioxide 30 mmol/L, Range (23-31), Anion Gap 14 mmol/L, Range (10-20), BUN (Urea Nitrogen) 17 mg/dL, Range (8.4-25.7), Creatinine 1.02 mg/dL, Range (0.7-1.3), Estimated GFR-MDRD 72 , Reference Range for Estimated GFR: Greater than 90, mL/min/1.73 m2 NOTE: The MDRD equation has not been validated for use, with the elderly (over 70 years of age), women, patients with, serious comorbid condition or persons with extremes of body size, muscle, mass, or nutritional status. , Glucose 100 mg/dL, Range (83-110), Calcium 9.4 mg/dL, Range (7.8-10.44), Bilirubin, Total 0.5 mg/dL, Range (0.2-1.2), Protein, Total 7.5 g/dL, Range (5.8-8.1), NOTE: Plasma values are generally 0.3 to 0.5 g/dL higher than serum values, due to the presence of fibrinogen. , Albumin 3.8 g/dL, Range (3.4-4.8), &a-1R&a+25V*p+0X*u8536K*c152B*c15G*c2P*p-0X&a-25V&a+1RName: Gunner Darling : 1945 M70 MedRec: [id number] AcctNum: [id number] Prepared: Sharifa Oct 03, 2016 17:52 by Interface Page 13 of 14 pMD [facility] EMERGENCY RECORD *Globulin 3.7 - H g/dL, Range (2.4-3.5), *Alb/Glob Ratio 1.0 - L g/dL, Range (1.2-2.2), Alkaline Phosphatase 124 U/L, Range (40-150), AST (SGOT) 26 U/L, Range (5-34), ALT (SGPT) 22 U/L, Range (0-55). (16:16 JPIP) Cardiac Profile w/CKMB & TropI Collection DT: Mchenry Oct 03, 2016 15:55, CKMB 1.2 ng/mL, Range (0-6.6), Troponin I 0.011 ng/mL, Range (< 0.028), Reference Range , 0.00 - 0.028 ng/mL Negative 0.029 - 0.29 ng/mL , Indeterminate Greater or Equal to 0.3 ng/mL Strongly suggests GA , . (16:26 JPIP) Lactic Acid for Sepsis Collection DT: Mchenry Oct 03, 2016 16:44, Lactic Acid - Sepsis 1.0 mmol/L, Range (0.5-2.2). (16:58 JPIP) B type Natriuretic Peptide Collection DT: Mchenry Oct 03, 2016 16:45, B type Natriuretic Peptide 11.0 pg/mL, Range (0-100). (16:59 JPIP) Rankin: PAUL=DO Lopez Joseph KMOR=STACEY Ferris, Leyda JIMÉNEZIC=STACEY Ruiz, Amirah &a-1R&a+25V*p+0X*p3065O*c152B*c15G*c2P*p-0X&a-25V&a+1RName: Gunner Darling : 1945 M70 MedRec: [id number] AcctNum: [id number] Prepared: Mchenry Oct 03, 2016 17:52 by Interface Page 14 of 14 pMD MTDD
[2016-10-03 18:02] VITALS: BMI 25.1
[2016-10-03] MEDS ORDERED: Ondansetron ODT 4 MG TAB SL PRN (18:08)
[2016-10-03] MEDS ORDERED: Ondansetron HCl/PF 4 MG/2 ML Vial IVP PRN (18:08)
[2016-10-03] MEDS ORDERED: Acetaminophen 325 MG TAB PO PRN (18:08)
[2016-10-03] MEDS ORDERED: HYDROcodone/Acetaminophen 5/325 mg Tablet PO PRN ×2 (18:08)
[2016-10-03] MEDS ORDERED: Albuterol Sulfate 2.5 mg/3 ml Neb NEB PRN (18:09)
--- NOTE | 2016-10-03 18:09 | RAD ---
PORTABLE CHEST: Date: 10/03/16 An AP portable film at 1553 hours is compared with a 11/26/15 chest film and a 09/12/15 CT of the th orax. FINDINGS: Again noted is an area of linear streaking in the left upper lobe that was present previously. This is presumed to be scarring. The area around the left hilum is slightly prominent, but it does not re ally appear much different than before. The lungs are otherwise clear, though hyperexpanded. The hea rt size is normal. There are no congestive changes or pleural effusions. IMPRESSION: Streaking in left upper lobe that appears to be chronic scarring with slight left hilar prominence. Little slip box changer time, though the caution would always be advanced that only a CT could show more subtle disease that might be missed on these plain radiographs. POS: HOME
[2016-10-03] MEDS ORDERED: Dextrose 5 %-0.45 % NaCl 1,000 ML IV SCH (18:15)
[2016-10-03] MEDS ORDERED: cefTRIAXone\\ROCEPHIN 1 GM in Sodium Chloride 0.9% 100 ML IVPB SCH (20:00)
[2016-10-03] MEDS ORDERED: FLU VACC TS2016-17(65YR +) 0.5 ML SYRINGE IM ONE (21:00)
[2016-10-03] MEDS ORDERED: methylPREDNISolone Sod Succ/PF 125 MG/2 ML VIAL IVP SCH (22:00)
[2016-10-04] MEDS: methylPREDNISolone Sod Succ/PF 125 MG/2 ML VIAL IVP SCH ×4 (01:06→23:46)
[2016-10-04 06:16] LABS: #Lymphocytes 0.9 thou/uL (1.20-3.40); #Monocytes 0.1 thou/uL (0.11-0.59); %Basophils 0.1 % (0.0-1.0); %Monocytes 1.1 % (0.0-10.0); Hematocrit 43.1 % (42.0-52.0); Mean Platelet Volume 8.3 fL (7.4-10.4); Red Blood Cell (RBC) Count 4.45 mill/uL (4.70-6.10); White Blood Cell (WBC) Count 13.1 thou/uL (4.8-10.8)
--- NOTE | 2016-10-04 07:01 | RAD ---
CHEST 2 VIEWS: Date: 10/04/16 Comparison made with the 10/03/16 x-ray, as well as a 12/08/15 study. FINDINGS: The heart remains normal in size. An area of scarring is seen in the left upper lobe as usual, as we ll as a few calcified granulomas in the left lung. COPD is present overall. There is some very sligh t increase in some of the basilar markings on both the right and the left. I cannot exclude a minima l infiltrate in either of these locations. Elsewhere in the lungs, one sees no lobar consolidation. There are no congestive changes. IMPRESSION: COPD with chronic changes, but also some slight increase in basilar markings near each costophrenic angle. Early infiltrative changes here are possible. CODE T. POS: HOME
[2016-10-04] MEDS ORDERED: Nitroglycerin 0.4 MG TAB (25 Tab Bottle) SL PRN (07:58)
[2016-10-04] MEDS ORDERED: Azithromycin 500 MG in Sodium Chloride 0.9% 250 ML 250 ML IVPB SCH (08:00)
[2016-10-04] MEDS ORDERED: Non-Formulary Item 1 EACH (Multivitamin With Minerals [Multiple Vitamin] 1 TABLET) PO SCH (09:00)
[2016-10-04] MEDS ORDERED: Non-Formulary Item 1 EACH (Ranitidine Hcl [Ranitidine Hcl] 150 MG) PO SCH (09:00)
[2016-10-04] MEDS ORDERED: Non-Formulary Item 1 EACH (Atorvastatin Calcium [Atorvastatin Calcium] 80 MG) PO SCH (09:00)
[2016-10-04] MEDS ORDERED: PAROXETINE HCL 40 MG PO SCH (09:00)
[2016-10-04] MEDS ORDERED: Arformoterol 15 MCG/2 ML NEB NEB SCH (09:00)
[2016-10-04] MEDS ORDERED: DOCUSATE SODIUM 50 MG PO SCH (09:00)
[2016-10-04] MEDS ORDERED: BUSPIRONE HCL 10 MG PO SCH (09:00)
[2016-10-04] MEDS ORDERED: BUDESONIDE 0.25 MG NEB SCH (09:00)
[2016-10-04] MEDS ORDERED: GUAIFENESIN 400 MG PO SCH (09:00)
[2016-10-04] MEDS: Aspirin 81 mg Enteric Coated Tablet PO SCH (14:42)
[2016-10-04] MEDS: Hydrochlorothiazide 25 MG TAB PO SCH (14:43)
[2016-10-04] MEDS: Multivitamin W/ Minerals 1 TAB PO SCH (14:45)
[2016-10-04] MEDS: PARoxetine 20 MG TAB PO SCH (14:45)
[2016-10-04] MEDS: CYPROHEPTADINE HCL 4 MG PO SCH (15:23)
[2016-10-04] MEDS: Arformoterol 15 MCG/2 ML NEB NEB SCH (18:39)
[2016-10-04] MEDS: Budesonide 0.5 MG/2 ML NEB NEB SCH (18:40)
[2016-10-04] MEDS: Atorvastatin Calcium 40 MG TAB PO SCH (20:56)
[2016-10-04] MEDS: busPIRone HCl 5 MG TAB PO SCH (20:57)
[2016-10-04] MEDS: Docusate Sodium 100 MG/10 ML UDCUP PO SCH (20:58)
[2016-10-04] MEDS: guaiFENesin ER 600 MG TAB PO SCH (20:58)
[2016-10-04] MEDS: Famotidine 20 MG TAB PO SCH (21:08)
[2016-10-04] MEDS: MOMETASONE FUROATE INH SCH (21:10)
[2016-10-04] MEDS: ALFUZOSIN HCL 10 MG PO SCH (21:13)
[2016-10-04] MEDS: Non-Formulary Item 1 EACH (Eszopiclone [Lunesta] 2 MG) PO SCH (21:14)
[2016-10-05] MEDS: Budesonide 0.5 MG/2 ML NEB NEB SCH ×2 (05:18→18:18)
[2016-10-05] MEDS: Arformoterol 15 MCG/2 ML NEB NEB SCH ×2 (05:32→18:19)
[2016-10-05 06:25] LABS: Anion Gap 12 mmol/L (10-20); BUN (Urea Nitrogen) 21 mg/dL (8.4-25.7); Calc. Creatinine Clearance 86 mL/min (70-130); Calcium 9.5 mg/dL (7.8-10.44); Carbon Dioxide 27 mmol/L (23-31); Chloride 104 mmol/L (98-107); Estimated GFR-MDRD 86
[2016-10-05 06:26] LABS: Hematocrit 42.3 % (42.0-52.0); Mean Platelet Volume 8.8 fL (7.4-10.4); Red Blood Cell (RBC) Count 4.37 mill/uL (4.70-6.10); White Blood Cell (WBC) Count 21.8 thou/uL (4.8-10.8)
[2016-10-05 06:53] LABS: Neutrophil 97 % (42-75)
[2016-10-05] MEDS: methylPREDNISolone Sod Succ/PF 125 MG/2 ML VIAL IVP SCH ×3 (08:47→23:48)
[2016-10-05] MEDS: Multivitamin W/ Minerals 1 TAB PO SCH (09:11)
[2016-10-05] MEDS: PARoxetine 20 MG TAB PO SCH (09:11)
[2016-10-05] MEDS: busPIRone HCl 5 MG TAB PO SCH ×2 (09:12→21:04)
[2016-10-05] MEDS: guaiFENesin ER 600 MG TAB PO SCH ×2 (09:12→21:04)
[2016-10-05] MEDS: Aspirin 81 mg Enteric Coated Tablet PO SCH (09:12)
[2016-10-05] MEDS: Famotidine 20 MG TAB PO SCH ×2 (09:12→21:04)
[2016-10-05] MEDS: Hydrochlorothiazide 25 MG TAB PO SCH (09:12)
[2016-10-05] MEDS: CYPROHEPTADINE HCL 4 MG PO SCH (09:13)
[2016-10-05] MEDS: MOMETASONE FUROATE INH SCH ×2 (09:13→20:40)
[2016-10-05] MEDS: Docusate Sodium 100 MG/10 ML UDCUP PO SCH ×2 (09:45→21:05)
[2016-10-05] MEDS: HYDROcodone/Acetaminophen 10/325 mg Tablet PO PRN (15:31)
[2016-10-05] MEDS: ALFUZOSIN HCL 10 MG PO SCH (20:39)
[2016-10-05] MEDS: Non-Formulary Item 1 EACH (Eszopiclone [Lunesta] 2 MG) PO SCH (20:40)
[2016-10-05] MEDS: Atorvastatin Calcium 40 MG TAB PO SCH (21:04)
[2016-10-05] MEDS: Zolpidem Tartrate 5 MG TAB PO PRN (23:47)
--- NOTE | 2016-10-06 01:15 | HP ---
DATE OF SERVICE: 10/04/2016 CHIEF COMPLAINT: Shortness of breath. HISTORY OF PRESENT ILLNESS: Mr. Darling is a 70-year-old male with end-stage chronic obstr uctive pulmonary disease, O2 dependent of 2-3 liters per minute, who presented to the emergency room last evening for increasing shortness of breath, cough and inability expectorate sputum. He was at tempted treatment for chronic obstructive pulmonary disease exacerbation as an outpatient unsuccessf ully with steroids and antibiotics orally. However, his symptoms progressed and thus was evaluated in the ED. Recommendations were made for admission for IV steroids, antibiotics, continuous O2, and nebulizer treatments. PAST MEDICAL HISTORY: 1. Chronic obstructive pulmonary disease. 2. Hyperlipidemia. 3. Post-traumatic stress disorder. 4. Insomnia. 5. Hypertension. 6. Chronic constipation. 7. Gastroesophageal reflux disease. 8. Mild coronary artery disease without angina. 9. Chronic pain with degenerative disease in the cervical and lumbar spine. 10. Osteoarthritis in multiple joints. PAST SURGICAL HISTORY: Hernia repair, back surgery x4, right shoulder replacement, exploratory lapa rotomy. SOCIAL HISTORY: No alcohol or drug use. Patient is a former smoker. He lives at home. HOME MEDICATIONS: 1. Nitrostat sublingual 0.4 mg sublingual p.r.n. angina. 2. Alfuzosin 10 mg p.o. once daily. 3. Atorvastatin 80 mg once daily. 4. Cyproheptadine 4 mg p.o. daily. 5. Guaifenesin 400 mg p.o. b.i.d. 6. Hydrochlorothiazide 25 mg p.o. daily. 7. Ranitidine 150 mg p.o. b.i.d. 8. Lunesta 2 mg p.o. at bedtime. 9. Docusate sodium 50 mg p.o. daily. 10. BuSpar 10 mg p.o. b.i.d. 11. Aspirin 81 mg p.o. daily. 12. Paroxetine 40 mg p.o. daily. 13. Multivitamin 1 p.o. daily. 14. Asmanex Twisthaler 220 mcg 1 puff b.i.d. 15. Combivent 18 mcg/103 mcg per attenuation 2 puffs b.i.d. 16. Tidioute 10/325 one p.o. b.i.d. 17. Budesonide 0.25/2 mL inhalation b.i.d. 18. Brovana 15 mcg/2 mL nebulized b.i.d. ALLERGIES: Please refer to allergies per chart. REVIEW OF SYSTEMS: Ten system review is negative except as per HPI and past medical history. PHYSICAL EXAMINATION: VITAL SIGNS: Presenting to the ER, blood pressure 104/76, heart rate 88, respirations 24, temperatu re 99.1, 92% on 3 liters of oxygen, 5/10 pain. GENERAL: A well-developed male, alert and oriented x3, in no acute distress. HEENT: Normocephalic, atraumatic. Pupils equally round and reactive to light and accommodation. E xtraocular muscles intact. Nares are patent without discharge. Tongue protrudes in the midline. NECK: Supple, without lymphadenopathy, thyromegaly, JVD or bruit. CARDIOVASCULAR: Distant heart sounds with regular rate and rhythm. No murmurs, clicks, rubs, or ga llops. LUNGS: Diminished air entry throughout with rare expiratory wheezing, no crackles, no increased wor k of breathing, although slightly tachypneic with prolonged expiratory phase. ABDOMEN: Positive bowel sounds in all four quadrants, soft, nontender, nondistended, no masses, gua rding, or rebound tenderness. EXTREMITIES: No cyanosis, clubbing or edema. NEUROLOGIC: Cranial nerves II through XII grossly intact. No focal deficits. LABORATORY DATA AND X-RAY FINDINGS: White count 11.4, 68% neutrophils, 19% lymphocytes, hemoglobin 15.2, hematocrit 45.0, platelets 233. Sodium 139, potassium 3.7, chloride 99, carbon dioxide 30, BU N 17, creatinine 1.02, glucose 100, calcium 9.4, total bilirubin 0.5, total protein 7.5, CK-MB 1.2, troponin I 0.011, lactic acid 1.0, B-type natriuretic peptide 11.0, chest x-ray shows chronic obstru ctive pulmonary disease without evidence of consolidation. EKG shows normal sinus rhythm with left axis deviation, right bundle branch block. ASSESSMENT AND PLAN: 1. Chronic obstructive pulmonary disease exacerbation, acute. Patient will be placed on supportive O2, nebulizer treatments, IV steroids, IV antibiotics of Rocephin and Zithromax due to failure of L evaquin as an outpatient. We will follow him with full pulmonary toilet. When he is able, we will initiate PT and OT for strengthening. 2. Hyperlipidemia. Patient will be continued on his statin. 2. Coronary artery disease. The patient will be continued on his aspirin. 3. Hypertension. The patient will be continued on his hydrochlorothiazide. 4. Depression/PTSD. The patient's slight regimen will be continued. 5. Prophylaxis. SCDs will be placed and patient will be continued on his H2 santos, PPI will be a dded.
[2016-10-06] MEDS: Arformoterol 15 MCG/2 ML NEB NEB SCH ×2 (05:48→19:07)
[2016-10-06] MEDS: Budesonide 0.5 MG/2 ML NEB NEB SCH ×2 (05:56→18:49)
[2016-10-06] MEDS: Famotidine 20 MG TAB PO SCH ×2 (08:23→21:28)
[2016-10-06] MEDS: methylPREDNISolone Sod Succ/PF 125 MG/2 ML VIAL IVP SCH ×3 (08:58→23:06)
[2016-10-06] MEDS: PARoxetine 20 MG TAB PO SCH (08:59)
[2016-10-06] MEDS: busPIRone HCl 5 MG TAB PO SCH ×2 (09:00→21:28)
[2016-10-06] MEDS: Docusate Sodium 100 MG/10 ML UDCUP PO SCH (09:00)
[2016-10-06] MEDS: Hydrochlorothiazide 25 MG TAB PO SCH (09:00)
[2016-10-06] MEDS: guaiFENesin ER 600 MG TAB PO SCH ×2 (09:00→21:28)
[2016-10-06] MEDS: Multivitamin W/ Minerals 1 TAB PO SCH (09:00)
[2016-10-06] MEDS: Aspirin 81 mg Enteric Coated Tablet PO SCH (09:00)
[2016-10-06] MEDS: CYPROHEPTADINE HCL 4 MG PO SCH (11:32)
[2016-10-06] MEDS: MOMETASONE FUROATE INH SCH ×2 (11:33→21:30)
[2016-10-06] MEDS ORDERED: Calcium Carbonate 500 MG ChewTAB PO PRN (12:09)
[2016-10-06] MEDS: HYDROcodone/Acetaminophen 10/325 mg Tablet PO PRN (12:13)
[2016-10-06] MEDS: Zolpidem Tartrate 5 MG TAB PO PRN (21:28)
[2016-10-06] MEDS: Atorvastatin Calcium 40 MG TAB PO SCH (21:28)
[2016-10-06] MEDS: Docusate 100 MG CAP PO SCH (21:28)
[2016-10-06] MEDS: ALFUZOSIN HCL 10 MG PO SCH (21:29)
[2016-10-06] MEDS: Non-Formulary Item 1 EACH (Eszopiclone [Lunesta] 2 MG) PO SCH (21:29)
[2016-10-07] MEDS: Arformoterol 15 MCG/2 ML NEB NEB SCH (06:05)
[2016-10-07] MEDS: Budesonide 0.5 MG/2 ML NEB NEB SCH (06:16)
[2016-10-07 06:22] VITALS: BP 145/77; TEMP 97.5
[2016-10-07] MEDS: methylPREDNISolone Sod Succ/PF 125 MG/2 ML VIAL IVP SCH (08:35)
[2016-10-07] MEDS: PARoxetine 20 MG TAB PO SCH (08:37)
[2016-10-07] MEDS: Famotidine 20 MG TAB PO SCH (08:37)
[2016-10-07] MEDS: Docusate 100 MG CAP PO SCH (08:38)
[2016-10-07] MEDS: busPIRone HCl 5 MG TAB PO SCH (08:38)
[2016-10-07] MEDS: Multivitamin W/ Minerals 1 TAB PO SCH (08:38)
[2016-10-07] MEDS: Aspirin 81 mg Enteric Coated Tablet PO SCH (08:39)
[2016-10-07] MEDS: Hydrochlorothiazide 25 MG TAB PO SCH (08:39)
[2016-10-07] MEDS: guaiFENesin ER 600 MG TAB PO SCH (08:39)
[2016-10-07] MEDS: CYPROHEPTADINE HCL 4 MG PO SCH (08:54)
[2016-10-07] MEDS: MOMETASONE FUROATE INH SCH (08:55)
== END 2016-10-07 09:30 | DRG 192 ==
LOC: BURERS 15:33 → BURMED 16:55
PROVIDERS: ADMIT Family Medicine; ATTEND Family Medicine
DX: J44.1 Chronic obstructive pulmonary disease with (acute) exacerbation (principal); I10 Essential (primary) hypertension; E78.5 Hyperlipidemia, unspecified; G47.00 Insomnia, unspecified; K59.00 Constipation, unspecified; K21.9 Gastro-esophageal reflux disease without esophagitis; I25.10 Atherosclerotic heart disease of native coronary artery without angina pectoris; M47.9 Spondylosis, unspecified; G89.29 Other chronic pain; M19.90 Unspecified osteoarthritis, unspecified site; Z87.891 Personal history of nicotine dependence; F32.9 Major depressive disorder, single episode, unspecified; F43.10 Post-traumatic stress disorder, unspecified; X58.XXXD Exposure to other specified factors, subsequent encounter
CPT/HCPCS: 36415; 71010; 71020; 80048; 80053; 82553; 83605; 83880; 84484; 85025; 87040; 93005; 94640; 94760; 96361; 96365; 96368; 96375; A4216; J0696; J1956; J2930; J3475; J7050; J7620; J7626

== ENCOUNTER 2016-10-07 09:30 | Inpatient (IN) | payer MEDICARE ==
[2016-10-07 10:28] VITALS: BMI 25.1
[2016-10-07] MEDS ORDERED: Acetaminophen 325 MG TAB PO PRN (11:19)
[2016-10-07] MEDS ORDERED: HYDROcodone/Acetaminophen 10/325 mg Tablet PO PRN (11:19)
[2016-10-07] MEDS ORDERED: Albuterol Sulfate 2.5 mg/3 ml Neb NEB PRN (11:19)
[2016-10-07] MEDS ORDERED: Nitroglycerin 0.4 MG TAB (25 Tab Bottle) SL PRN (11:35)
[2016-10-07] MEDS ORDERED: Ondansetron ODT 4 MG TAB PO PRN (11:43)
[2016-10-07] MEDS ORDERED: Ondansetron HCl/PF 4 MG/2 ML Vial SLOW IVP PRN (11:44)
[2016-10-07] MEDS ORDERED: HYDROcodone/Acetaminophen 5/325 mg Tablet PO PRN ×2 (11:46→11:48)
[2016-10-07] MEDS: HYDROcodone/Acetaminophen 5/325 mg Tablet PO PRN (11:51)
[2016-10-07] MEDS ORDERED: FLU VACC TS2016-17(65YR +) 0.5 ML SYRINGE IM ONE (15:00)
[2016-10-07] MEDS: methylPREDNISolone Sod Succ/PF 125 MG/2 ML VIAL IVP SCH ×2 (15:13→23:21)
[2016-10-07] MEDS: MOMETASONE FUROATE INH SCH (17:47)
[2016-10-07] MEDS: Budesonide 0.5 MG/2 ML NEB NEB SCH (17:48)
[2016-10-07] MEDS: Arformoterol 15 MCG/2 ML NEB NEB SCH (17:54)
[2016-10-07] MEDS ORDERED: Docusate Sodium 100 MG/10 ML UDCUP PO SCH (21:00)
[2016-10-07] MEDS: Atorvastatin Calcium 40 MG TAB PO SCH (21:04)
[2016-10-07] MEDS: Zolpidem Tartrate 5 MG TAB PO PRN (21:04)
[2016-10-07] MEDS: guaiFENesin ER 600 MG TAB PO SCH (21:05)
[2016-10-07] MEDS: Famotidine 20 MG TAB PO SCH (21:05)
[2016-10-07] MEDS: busPIRone HCl 5 MG TAB PO SCH (21:05)
[2016-10-07] MEDS: LUNESTA 2 MG PO SCH (21:06)
[2016-10-07] MEDS: ALFUZOSIN ER 10 MG PO SCH (21:06)
--- NOTE | 2016-10-07 23:18 | DIS ---
DATE OF ADMISSION: 10/04/2016 DATE OF DISCHARGE: To swing bed status 10/07/2016 ADMISSION DIAGNOSIS: Chronic obstructive pulmonary disease exacerbation. OTHER DIAGNOSES: hyperlipidemia, post-traumatic stress disorder, insomnia, hypertension, constipation, gastroesophageal reflux disease, history of coronary artery disease, chronic back pain, and osteoarthritis. PROCEDURES: Chest x-ray was done on 10/04/2016, which showed chronic obstructive pulmonary disease with chronic changes, but also some slight increase in basilar markings in each costophrenic angle. Early infiltrative changes here are possible. HOSPITAL COURSE: This is a 70-year-old male, who was admitted for COPD exacerbation after failed outpatient treatment. He was empirically started on Levaquin along with IV Solu-Medrol, scheduled nebulized treatments, and supplemental oxygen. The patient is on home oxygen normally, ranging between 2- 3 liters. He is currently being transitioned from an inpatient to a swing bed status. To this point during his stay, he has remained afebrile. He has had a notable increase of leukocytosis, which is considered to be secondary to steroid therapy. The patient has had several prior admissions for COPD exacerbation. He states that his typical timeframe for admission usually averages around 1 week; however, he has had a prior admission requiring up to 20 days stay. At this point, he appears to be slowly improving. States that he normally meets his threshold to be able to go home when he is able to effectively ambulate; for this reason, physical therapy will be initiated to ascertain his ability to transition to his home setting. He is currently on his usual supplemental oxygen level. Will continue IV Solu-Medrol with likely transition to po steroid taper tomorrow. Levaquin will also be continued with f/ u CXR ordered in the morning. DISPOSITION: We will plan for patient to discharge home and follow up with Dr. Vaughan once he is clear for discharge. DISCHARGE MEDICATIONS: Will continue IV Solu-Medrol and Levaquin; will continue home meds Including Atorvastatin sublingually 0.4 mg p.r.n., alfuzosin 10 mg p.o. daily, atorvastatin 80 mg p.o. at bedtime, cyproheptadine 4 mg p.o. daily, Guaifenesin 400 mg p.o. b.i.d., hydrochlorothiazide 25 mg p.o. daily, Ranitidine 150 mg p.o. b.i.d., Lunesta 2 mg p.o. at bedtime, docusate sodium 50 mg p.o. daily, BuSpar 10 mg p.o. b.i.d., aspirin 81 mg p.o. daily, Paxil 40 mg p.o. daily, multivitamin 1 p.o. daily, Asmanex 220 mcg 1 puff b.i.d., Combivent 2 puffs b.i.d., [place] 10/325 one p.o. b.i.d., budesonide 0.25/2 mL inhaled b.i.d., Brovana 15 mcg per 2 mL nebulized b.i.d. MTDD
[2016-10-08] MEDS: Arformoterol 15 MCG/2 ML NEB NEB SCH ×2 (06:02→20:40)
[2016-10-08] MEDS: HYDROcodone/Acetaminophen 5/325 mg Tablet PO PRN ×2 (06:11→20:45)
[2016-10-08] MEDS: MOMETASONE FUROATE INH SCH ×2 (06:16→19:20)
[2016-10-08] MEDS: Famotidine 20 MG TAB PO SCH ×2 (08:53→20:40)
[2016-10-08] MEDS: Aspirin 81 mg Enteric Coated Tablet PO SCH (08:54)
[2016-10-08] MEDS: guaiFENesin ER 600 MG TAB PO SCH ×2 (08:54→20:40)
[2016-10-08] MEDS: PARoxetine 20 MG TAB PO SCH (08:54)
[2016-10-08] MEDS: Hydrochlorothiazide 25 MG TAB PO SCH (08:54)
[2016-10-08] MEDS: busPIRone HCl 5 MG TAB PO SCH ×2 (08:54→20:39)
[2016-10-08] MEDS: Multivitamin W/ Minerals 1 TAB PO SCH (08:54)
[2016-10-08] MEDS: CYPROHEPTADINE 4 MG PO SCH (08:55)
[2016-10-08] MEDS: methylPREDNISolone Sod Succ/PF 125 MG/2 ML VIAL IVP SCH ×2 (08:55→15:50)
[2016-10-08] MEDS: Budesonide 0.5 MG/2 ML NEB NEB SCH ×2 (09:06→19:15)
[2016-10-08] MEDS: Docusate 100 MG CAP PO SCH ×2 (09:10→20:38)
--- NOTE | 2016-10-08 20:22 | RAD ---
CHEST 10/08/16 PA and lateral views are compared with the 10/04 study. COPD is present as usual. The left base seems a little clearer today than it was before suggesting t hat there may have been a minimal infiltrate here. Right base is also slightly clearer. An area of s carring is seen in the left upper lobe as usual. The left hilum is a little more prominent than the right but no more so than even an older film of 12/08/15. The heart size is normal. There are no effu sions. IMPRESSION: COPD with chronic changes. Lung bases seem slightly clearer than the prior exam. POS: HOME
[2016-10-08] MEDS: Atorvastatin Calcium 40 MG TAB PO SCH (20:39)
[2016-10-08] MEDS: Zolpidem Tartrate 5 MG TAB PO PRN (20:45)
[2016-10-08] MEDS: ALFUZOSIN ER 10 MG PO SCH (21:58)
[2016-10-08] MEDS: LUNESTA 2 MG PO SCH (21:58)
[2016-10-09] MEDS: HYDROcodone/Acetaminophen 5/325 mg Tablet PO PRN ×2 (05:17→15:35)
[2016-10-09] MEDS: Budesonide 0.5 MG/2 ML NEB NEB SCH ×2 (05:42→18:34)
[2016-10-09] MEDS: MOMETASONE FUROATE INH SCH ×2 (05:45→18:36)
[2016-10-09] MEDS: predniSONE 20 MG TAB PO SCH (08:36)
[2016-10-09] MEDS: guaiFENesin ER 600 MG TAB PO SCH ×2 (08:41→21:38)
[2016-10-09] MEDS: Hydrochlorothiazide 25 MG TAB PO SCH (08:41)
[2016-10-09] MEDS: PARoxetine 20 MG TAB PO SCH (08:42)
[2016-10-09] MEDS: busPIRone HCl 5 MG TAB PO SCH ×2 (08:42→21:38)
[2016-10-09] MEDS: Multivitamin W/ Minerals 1 TAB PO SCH (08:42)
[2016-10-09] MEDS: Famotidine 20 MG TAB PO SCH ×2 (08:43→21:38)
[2016-10-09] MEDS: Arformoterol 15 MCG/2 ML NEB NEB SCH ×2 (08:43→21:39)
[2016-10-09] MEDS: Aspirin 81 mg Enteric Coated Tablet PO SCH (08:43)
[2016-10-09] MEDS: Docusate 100 MG CAP PO SCH ×2 (08:43→21:39)
[2016-10-09] MEDS: CYPROHEPTADINE 4 MG PO SCH (08:54)
[2016-10-09] MEDS ORDERED: Tamsulosin HCl 0.4 MG CAP PO SCH (16:45)
[2016-10-09] MEDS: Zolpidem Tartrate 5 MG TAB PO PRN (21:38)
[2016-10-09] MEDS: Atorvastatin Calcium 40 MG TAB PO SCH (21:39)
[2016-10-09] MEDS: ALFUZOSIN ER 10 MG PO SCH (21:40)
[2016-10-09] MEDS: LUNESTA 2 MG PO SCH (21:41)
[2016-10-10] MEDS: HYDROcodone/Acetaminophen 5/325 mg Tablet PO PRN (02:31)
[2016-10-10] MEDS: Budesonide 0.5 MG/2 ML NEB NEB SCH ×2 (06:29→18:29)
[2016-10-10] MEDS: MOMETASONE FUROATE INH SCH ×2 (06:32→19:55)
[2016-10-10] MEDS: Famotidine 20 MG TAB PO SCH ×2 (06:37→21:18)
[2016-10-10] MEDS: predniSONE 20 MG TAB PO SCH (08:43)
[2016-10-10] MEDS: Aspirin 81 mg Enteric Coated Tablet PO SCH (08:49)
[2016-10-10] MEDS: busPIRone HCl 5 MG TAB PO SCH ×2 (08:49→21:17)
[2016-10-10] MEDS: PARoxetine 20 MG TAB PO SCH (08:56)
[2016-10-10] MEDS: Docusate 100 MG CAP PO SCH ×2 (08:56→21:17)
[2016-10-10] MEDS: Arformoterol 15 MCG/2 ML NEB NEB SCH ×2 (08:57→21:12)
[2016-10-10] MEDS: guaiFENesin ER 600 MG TAB PO SCH ×2 (08:57→21:17)
[2016-10-10] MEDS: Multivitamin W/ Minerals 1 TAB PO SCH (08:57)
[2016-10-10] MEDS: Hydrochlorothiazide 25 MG TAB PO SCH (08:57)
[2016-10-10] MEDS: CYPROHEPTADINE 4 MG PO SCH (08:58)
[2016-10-10] MEDS ORDERED: Tamsulosin HCl 0.4 MG CAP PO SCH ×2 (09:00→21:00)
[2016-10-10] MEDS: Atorvastatin Calcium 40 MG TAB PO SCH (21:17)
[2016-10-10] MEDS: ALFUZOSIN ER 10 MG PO SCH (21:18)
[2016-10-10] MEDS: Zolpidem Tartrate 5 MG TAB PO PRN (21:18)
[2016-10-10] MEDS: LUNESTA 2 MG PO SCH (21:18)
[2016-10-11] MEDS: Budesonide 0.5 MG/2 ML NEB NEB SCH (05:45)
[2016-10-11] MEDS: MOMETASONE FUROATE INH SCH (05:49)
[2016-10-11 06:25] VITALS: BP 145/78; TEMP 97.5
[2016-10-11] MEDS: predniSONE 20 MG TAB PO SCH (08:48)
[2016-10-11] MEDS: busPIRone HCl 5 MG TAB PO SCH (08:49)
[2016-10-11] MEDS: Docusate 100 MG CAP PO SCH (08:49)
[2016-10-11] MEDS: guaiFENesin ER 600 MG TAB PO SCH (08:50)
[2016-10-11] MEDS: Multivitamin W/ Minerals 1 TAB PO SCH (08:50)
[2016-10-11] MEDS: PARoxetine 20 MG TAB PO SCH (08:50)
[2016-10-11] MEDS: Famotidine 20 MG TAB PO SCH (08:51)
[2016-10-11] MEDS: Hydrochlorothiazide 25 MG TAB PO SCH (08:51)
[2016-10-11] MEDS: Aspirin 81 mg Enteric Coated Tablet PO SCH (08:51)
[2016-10-11] MEDS: CYPROHEPTADINE 4 MG PO SCH (08:52)
[2016-10-11] MEDS: Arformoterol 15 MCG/2 ML NEB NEB SCH (08:52)
== END 2016-10-11 13:00 | disposition home health service (06) | DRG 192 ==
LOC: BURMED 09:30
PROVIDERS: ADMIT Family Medicine; ATTEND Family Medicine
DX: J44.1 Chronic obstructive pulmonary disease with (acute) exacerbation (principal); Z99.81 Dependence on supplemental oxygen; E78.5 Hyperlipidemia, unspecified; F43.10 Post-traumatic stress disorder, unspecified; G47.00 Insomnia, unspecified; I10 Essential (primary) hypertension; K59.00 Constipation, unspecified; K21.9 Gastro-esophageal reflux disease without esophagitis; I25.10 Atherosclerotic heart disease of native coronary artery without angina pectoris; G89.29 Other chronic pain; M54.9 Dorsalgia, unspecified; M19.90 Unspecified osteoarthritis, unspecified site; R53.81 Other malaise
CPT/HCPCS: 71020; A4216; G8978-GP-CI; G8979-GP-CI; G8980-GP-CI; G8987-GO-CI; G8988-GO-CI; G8989-GO-CI; J1956; J2930; J7506; J7620; J7626

== ENCOUNTER 2017-02-07 15:47 | Outpatient (CLI) | payer MEDICARE ==
[2017-02-07 16:59] LABS: PSA-Symptomatic (DIAGNOSTIC) 1.38 ng/mL (0-4.0); Thyroid Stimulating Hormone 2.5968 uIU/mL (0.35-4.94)
== END 2017-02-07 15:48 ==
LOC: HPCALD 15:47
PROVIDERS: ATTEND Family Medicine
DX: N40.1 Benign prostatic hyperplasia with lower urinary tract symptoms (principal); R20.8 Other disturbances of skin sensation
CPT/HCPCS: 36415; 82607; 84153; 84443; 86592

== ENCOUNTER 2017-03-24 09:53 | Outpatient (CLI) | payer MEDICARE ==
[2017-03-24 10:41] LABS: #Basophils 0.1 thou/uL (0.0-0.2); #Eosinphils 0.3 thou/uL (0.0-0.7); #Lymphocytes 2.1 thou/uL (1.20-3.40); #Monocytes 0.6 thou/uL (0.11-0.59); #Neutrophils 4.5 thou/uL (1.40-6.50); %Basophils 1.1 % (0.0-1.0); %Eosinophils 3.9 % (0.0-10.0); %Monocytes 8.3 % (0.0-10.0); %Neutrophils 59.8 % (42.0-75.0); Hemoglobin 14.5 g/dL (14.0-18.0); Mean Corpuscular HGB CONC 34.8 g/dL (32.0-36.0); Mean Corpuscular Hemoglobin 32.6 pg (27.0-31.0); Mean Corpuscular Volume 93.6 fl (80.0-94.0); Mean Platelet Volume 9.5 fL (7.4-10.4); Platelet Count 200 thou/uL (130-400); RBC Distribution Width 12.3 % (11.5-14.5); Red Blood Cell (RBC) Count 4.45 mill/uL (4.70-6.10); White Blood Cell (WBC) Count 7.6 thou/uL (4.8-10.8)
== END 2017-03-24 09:54 | disposition home or self-care (01) ==
LOC: BURLAB 09:53
PROVIDERS: ATTEND Orthopaedic Surgery
DX: M25.511 Pain in right shoulder (principal)
CPT/HCPCS: 36415; 85025; 85652; 86140

== ENCOUNTER 2017-05-06 11:12 | Inpatient (IN) | payer MEDICARE ==
[2017-05-06] MEDS ORDERED: PROVENTIL INHALER 6.7 G (200 INHALATIONS) INH PRN (13:22)
[2017-05-06] MEDS ORDERED: Nitroglycerin 0.4 MG TAB (25 Tab Bottle) SL PRN (13:22)
[2017-05-06] MEDS ORDERED: Guaifenesin DM 100-10/5 ML UDCUP PO PRN (13:22)
[2017-05-06 15:11] VITALS: BMI 27.9
[2017-05-06] MEDS ORDERED: traMADol HCl 50 MG TAB PO PRN (17:36)
[2017-05-06] MEDS ORDERED: Non-Formulary Item 1 EACH (Atorvastatin Calcium [Atorvastatin Calcium] 80 MG) PO SCH (21:00)
[2017-05-06] MEDS ORDERED: Non-Formulary Item 1 EACH (Eszopiclone [Lunesta] 2 MG) PO SCH (21:00)
[2017-05-06] MEDS ORDERED: BUSPIRONE HCL 20 MG PO SCH (21:00)
[2017-05-06] MEDS ORDERED: DOCUSATE SODIUM 50 MG PO SCH (21:00)
[2017-05-06] MEDS ORDERED: GUAIFENESIN 400 MG PO SCH (21:00)
[2017-05-06] MEDS ORDERED: Non-Formulary Item 1 EACH (Ranitidine Hcl [Ranitidine Hcl] 150 MG) PO SCH (21:00)
[2017-05-06] MEDS ORDERED: Mometasone Furoate 120 PUFF 220 MCG INH SCH (21:00)
[2017-05-06] MEDS ORDERED: Non-Formulary Item 1 EACH (Melatonin [Melatonin] 5 MG) PO SCH (21:00)
[2017-05-06] MEDS: Atorvastatin Calcium 40 MG TAB PO SCH (21:18)
[2017-05-06] MEDS: busPIRone HCl 5 MG TAB PO SCH (21:19)
[2017-05-06] MEDS: Docusate Sodium 100 MG/10 ML UDCUP PO SCH (21:20)
[2017-05-06] MEDS: Famotidine 20 MG TAB PO SCH (21:21)
[2017-05-06] MEDS: Diabetic Tussin 200 MG/10 ML UDCUP PO SCH (21:22)
[2017-05-06] MEDS: Tamsulosin HCl 0.4 MG CAP PO SCH (21:23)
[2017-05-06] MEDS ORDERED: Arformoterol 15 MCG/2 ML NEB ONE (21:37)
[2017-05-06] MEDS: Arformoterol 15 MCG/2 ML NEB NEB SCH (21:51)
[2017-05-07] MEDS: Mometasone/Formoterol 60 PUFF AER INH SCH ×2 (06:16→18:37)
[2017-05-07] MEDS: Arformoterol 15 MCG/2 ML NEB NEB SCH ×2 (06:18→18:34)
[2017-05-07] MEDS: Diabetic Tussin 200 MG/10 ML UDCUP PO SCH ×2 (08:34→20:30)
[2017-05-07] MEDS: Hydrochlorothiazide 25 MG TAB PO SCH (08:35)
[2017-05-07] MEDS: busPIRone HCl 5 MG TAB PO SCH ×2 (08:35→20:30)
[2017-05-07] MEDS: PARoxetine 20 MG TAB PO SCH (08:36)
[2017-05-07] MEDS: Polyethylene Glycol 3350 17 GM Packet PO SCH (08:36)
[2017-05-07] MEDS: Aspirin 81 mg Enteric Coated Tablet PO SCH (08:36)
[2017-05-07] MEDS: Multivitamin W/ Minerals 1 TAB PO SCH (08:36)
[2017-05-07] MEDS: Famotidine 20 MG TAB PO SCH ×2 (08:36→20:29)
[2017-05-07] MEDS: HYDROcodone/Acetaminophen 10/325 mg Tablet PO PRN (08:38)
[2017-05-07] MEDS: Docusate Sodium 100 MG/10 ML UDCUP PO SCH ×2 (08:48→20:26)
[2017-05-07] MEDS: PATIENT'S HOME MEDICATION PO SCH (08:52)
[2017-05-07] MEDS ORDERED: CYPROHEPTADINE HCL 4 MG PO SCH (09:00)
[2017-05-07] MEDS ORDERED: Non-Formulary Item 1 EACH (Multivitamin With Minerals [Multiple Vitamin] 1 TABLET) PO SCH (09:00)
[2017-05-07] MEDS ORDERED: PAROXETINE HCL 40 MG PO SCH (09:00)
[2017-05-07] MEDS: Tamsulosin HCl 0.4 MG CAP PO SCH (20:29)
[2017-05-07] MEDS: Atorvastatin Calcium 40 MG TAB PO SCH (20:29)
[2017-05-08] MEDS: Mometasone/Formoterol 60 PUFF AER INH SCH ×2 (06:09→18:21)
[2017-05-08] MEDS: Arformoterol 15 MCG/2 ML NEB NEB SCH ×2 (06:10→18:15)
[2017-05-08] MEDS: Polyethylene Glycol 3350 17 GM Packet PO SCH (08:49)
[2017-05-08] MEDS: PARoxetine 20 MG TAB PO SCH (08:49)
[2017-05-08] MEDS: busPIRone HCl 5 MG TAB PO SCH ×2 (08:50→20:46)
[2017-05-08] MEDS: Aspirin 81 mg Enteric Coated Tablet PO SCH (08:50)
[2017-05-08] MEDS: Multivitamin W/ Minerals 1 TAB PO SCH (08:50)
[2017-05-08] MEDS: Hydrochlorothiazide 25 MG TAB PO SCH (08:50)
[2017-05-08] MEDS: PATIENT'S HOME MEDICATION PO SCH (08:51)
[2017-05-08] MEDS: Docusate Sodium 100 MG/10 ML UDCUP PO SCH ×2 (08:51→20:49)
[2017-05-08] MEDS: Diabetic Tussin 200 MG/10 ML UDCUP PO SCH ×2 (08:52→20:49)
[2017-05-08] MEDS: Famotidine 20 MG TAB PO SCH ×2 (08:54→20:47)
[2017-05-08] MEDS: HYDROcodone/Acetaminophen 10/325 mg Tablet PO PRN (10:09)
[2017-05-08] MEDS: Tamsulosin HCl 0.4 MG CAP PO SCH (20:47)
[2017-05-08] MEDS: Atorvastatin Calcium 40 MG TAB PO SCH (20:48)
[2017-05-09] MEDS: Mometasone/Formoterol 60 PUFF AER INH SCH ×2 (05:30→18:08)
[2017-05-09] MEDS: Arformoterol 15 MCG/2 ML NEB NEB SCH ×2 (06:25→18:12)
[2017-05-09] MEDS: busPIRone HCl 5 MG TAB PO SCH ×2 (08:40→20:41)
[2017-05-09] MEDS: Hydrochlorothiazide 25 MG TAB PO SCH (08:41)
[2017-05-09] MEDS: Famotidine 20 MG TAB PO SCH ×2 (08:41→20:41)
[2017-05-09] MEDS: Aspirin 81 mg Enteric Coated Tablet PO SCH (08:41)
[2017-05-09] MEDS: PARoxetine 20 MG TAB PO SCH (08:41)
[2017-05-09] MEDS: Multivitamin W/ Minerals 1 TAB PO SCH (08:42)
[2017-05-09] MEDS: PATIENT'S HOME MEDICATION PO SCH (08:44)
[2017-05-09] MEDS: Polyethylene Glycol 3350 17 GM Packet PO SCH (08:49)
[2017-05-09] MEDS: Diabetic Tussin 200 MG/10 ML UDCUP PO SCH ×2 (08:50→20:42)
[2017-05-09] MEDS: Docusate Sodium 100 MG/10 ML UDCUP PO SCH (08:51)
[2017-05-09] MEDS ORDERED: traMADol HCl 50 MG TAB PO PRN (11:06)
[2017-05-09] MEDS: traMADol HCl 50 MG TAB PO PRN (12:37)
[2017-05-09] MEDS: Zolpidem Tartrate 5 MG TAB PO SCH (20:41)
[2017-05-09] MEDS: Docusate 100 MG CAP PO SCH (20:41)
[2017-05-09] MEDS: Atorvastatin Calcium 40 MG TAB PO SCH (20:42)
[2017-05-09] MEDS: Tamsulosin HCl 0.4 MG CAP PO SCH (20:42)
[2017-05-09] MEDS: Melatonin 3 MG TAB PO SCH (20:48)
[2017-05-10] MEDS: traMADol HCl 50 MG TAB PO PRN ×2 (01:12→14:20)
[2017-05-10] MEDS: Mometasone/Formoterol 60 PUFF AER INH SCH ×2 (06:25→18:01)
[2017-05-10] MEDS: Arformoterol 15 MCG/2 ML NEB NEB SCH ×2 (06:28→18:02)
[2017-05-10] MEDS: Aspirin 81 mg Enteric Coated Tablet PO SCH (09:20)
[2017-05-10] MEDS: busPIRone HCl 5 MG TAB PO SCH ×2 (09:21→21:15)
[2017-05-10] MEDS: Docusate 100 MG CAP PO SCH ×2 (09:21→21:14)
[2017-05-10] MEDS: PARoxetine 20 MG TAB PO SCH (09:23)
[2017-05-10] MEDS: Multivitamin W/ Minerals 1 TAB PO SCH (09:23)
[2017-05-10] MEDS: Famotidine 20 MG TAB PO SCH ×2 (09:23→21:15)
[2017-05-10] MEDS: Hydrochlorothiazide 25 MG TAB PO SCH (09:24)
[2017-05-10] MEDS: Diabetic Tussin 200 MG/10 ML UDCUP PO SCH ×2 (09:24→21:13)
[2017-05-10] MEDS: PATIENT'S HOME MEDICATION PO SCH (09:27)
[2017-05-10] MEDS: Polyethylene Glycol 3350 17 GM Packet PO SCH (09:27)
[2017-05-10] MEDS: Zolpidem Tartrate 5 MG TAB PO SCH (21:15)
[2017-05-10] MEDS: Atorvastatin Calcium 40 MG TAB PO SCH (21:15)
[2017-05-10] MEDS: Tamsulosin HCl 0.4 MG CAP PO SCH (21:16)
[2017-05-10] MEDS: Melatonin 3 MG TAB PO SCH (21:17)
[2017-05-11] MEDS: Mometasone/Formoterol 60 PUFF AER INH SCH ×2 (06:18→18:28)
[2017-05-11] MEDS: Arformoterol 15 MCG/2 ML NEB NEB SCH ×2 (06:20→18:21)
[2017-05-11] MEDS: Famotidine 20 MG TAB PO SCH ×2 (09:43→21:02)
[2017-05-11] MEDS: busPIRone HCl 5 MG TAB PO SCH ×2 (09:43→21:03)
[2017-05-11] MEDS: PARoxetine 20 MG TAB PO SCH (09:44)
[2017-05-11] MEDS: Multivitamin W/ Minerals 1 TAB PO SCH (09:44)
[2017-05-11] MEDS: Docusate 100 MG CAP PO SCH ×2 (09:44→21:02)
[2017-05-11] MEDS: Diabetic Tussin 200 MG/10 ML UDCUP PO SCH ×2 (09:44→21:01)
[2017-05-11] MEDS: Aspirin 81 mg Enteric Coated Tablet PO SCH (09:44)
[2017-05-11] MEDS: Hydrochlorothiazide 25 MG TAB PO SCH (09:45)
[2017-05-11] MEDS: Polyethylene Glycol 3350 17 GM Packet PO SCH (09:45)
[2017-05-11] MEDS: traMADol HCl 50 MG TAB PO PRN ×2 (09:45→17:40)
[2017-05-11] MEDS: PATIENT'S HOME MEDICATION PO SCH (09:50)
[2017-05-11] MEDS ORDERED: Dextrose 50% Abboject 50 ML SYRINGE ONE (20:57)
[2017-05-11] MEDS: Atorvastatin Calcium 40 MG TAB PO SCH (21:01)
[2017-05-11] MEDS: Tamsulosin HCl 0.4 MG CAP PO SCH (21:02)
[2017-05-11] MEDS: Melatonin 3 MG TAB PO SCH (21:03)
[2017-05-11] MEDS: Zolpidem Tartrate 5 MG TAB PO SCH (21:04)
[2017-05-12] MEDS: Mometasone/Formoterol 60 PUFF AER INH SCH (06:04)
[2017-05-12 06:09] VITALS: BP 131/63; TEMP 98.5
[2017-05-12] MEDS: Arformoterol 15 MCG/2 ML NEB NEB SCH (06:18)
[2017-05-12] MEDS: traMADol HCl 50 MG TAB PO PRN (07:46)
[2017-05-12] MEDS: Docusate 100 MG CAP PO SCH (08:56)
[2017-05-12] MEDS: PARoxetine 20 MG TAB PO SCH (08:56)
[2017-05-12] MEDS: Multivitamin W/ Minerals 1 TAB PO SCH (08:56)
[2017-05-12] MEDS: busPIRone HCl 5 MG TAB PO SCH (08:56)
[2017-05-12] MEDS: Hydrochlorothiazide 25 MG TAB PO SCH (08:56)
[2017-05-12] MEDS: Aspirin 81 mg Enteric Coated Tablet PO SCH (08:57)
[2017-05-12] MEDS: Famotidine 20 MG TAB PO SCH (08:57)
[2017-05-12] MEDS: Polyethylene Glycol 3350 17 GM Packet PO SCH (08:57)
[2017-05-12] MEDS: PATIENT'S HOME MEDICATION PO SCH (08:58)
[2017-05-12] MEDS ORDERED: Melatonin 3 MG TAB ONE (09:00)
== END 2017-05-12 11:15 | disposition home health service (06) | DRG 561 ==
LOC: BURMED 12:26
PROVIDERS: ADMIT Family Medicine; ATTEND Family Medicine
DX: Z47.1 Aftercare following joint replacement surgery (principal); J44.9 Chronic obstructive pulmonary disease, unspecified; Z96.611 Presence of right artificial shoulder joint
CPT/HCPCS: 94640; 94664; G8978-GP-CJ; G8979-GP-CH; G8987-GO-CK; G8988-GO-CI; J7620

== ENCOUNTER 2018-01-27 11:58 | Outpatient (CLI) | payer MEDICARE ==
--- NOTE | 2018-01-27 20:21 | RAD ---
LEFT HIP TWO VIEWS: 01/27/18 Comparison is made with an abdominal film dated 01/18/13. No fracture is evident at this time. The visible bony structures appeared intact. Femoral arterial ca lcifications are present. The hip joint space is normal in width and the articular surfaces are karlos h. The adjacent pubic ring appears intact. IMPRESSION: No acute finding. POS: HOME
== END 2018-01-27 11:59 | disposition home or self-care (01) ==
LOC: BURRAD 11:58
PROVIDERS: ATTEND Family Medicine
DX: S70.02XA Contusion of left hip, initial encounter (principal)

== ENCOUNTER 2018-02-07 10:48 | Outpatient (CLI) | payer MEDICARE ==
--- NOTE | 2018-02-07 16:56 | RAD ---
CHEST: Date: 02/07/18 PA and lateral views are compared with the 07/23/17 study. FINDINGS: The heart is normal in size. COPD is present with flattening of the diaphragm. There appears to be so me scarring in the lung apices. Some increased density is seen of the right apex and is partially obs cured by overlying ribs and clavicle. While this is more likely scarring than not, I am not able to b e sure without a CT scan whether this finding is new or old, or if new pathology has occurred here. T here are no lobar consolidations. There is slight blunting of the left costophrenic angle. IMPRESSION: 1. COPD with no large infiltrates seen. 2. Mild blunting of the left costophrenic angle. Hyperinflation versus small pleural effusion. 3. Equivocal density in the right lung apex, mostly obscured by overlapping bones. While this may ju st be scarring, one might consider an elective CT to remove all doubt. CODE T. POS: HOME
--- NOTE | 2018-02-07 17:00 | RAD ---
LUMBAR SPINE: Date: 02/07/18 There has been a prior posterior lumbar fusion at L4 through S1. Disc space narrowing is see at L4-L5 and L5-S1. No acute fracture seen in the lumbar region. The SI joints are symmetrical. I cannot see the lower thoracic vertebra well enough to comment on them. The distal abdominal aorta is mildly dila ema, but the AP diameter is only 3.0 cm. IMPRESSION: Degenerative changes, but no acute findings. POS: HOME
--- NOTE | 2018-02-07 17:00 | RAD ---
CERVICAL SPINE 02/07/18 A total six views are provided. The patient has had a prior anterior cervical fusion of C3 through C5 . Comparison is made with a 06/11/16 study. The position of the fusion seems normal and expected. No issues are seen associated with the hardware . It is difficult to assess the lower cervical spine, though on the swimmer's view there is suggestio n of disc space narrowing at C5-C6 and C6-C7. Oblique views suggests significant foraminal narrowing at C2-C3 and C3-C4 on the right side. No fracture or dislocation was seen. The C1 to dens distance is normal and the soft tissues are normal in thickness. IMPRESSION: Postoperative changes and degenerative changes as noted. No acute findings. POS: HOME
== END 2018-02-07 10:49 | disposition home or self-care (01) ==
LOC: BURRAD 10:48
PROVIDERS: ATTEND Family Medicine
DX: J44.1 Chronic obstructive pulmonary disease with (acute) exacerbation (principal); J98.4 Other disorders of lung; M47.892 Other spondylosis, cervical region; M47.896 Other spondylosis, lumbar region; Z98.890 Other specified postprocedural states
CPT/HCPCS: 71046; 72050; 72100

== ENCOUNTER 2018-04-03 10:37 | Outpatient (CLI) | payer MEDICARE ==
--- NOTE | 2018-04-03 18:21 | RAD ---
LEFT FIFTH FINGER: Date: 04/03/18 No fracture or dislocation seen. There is a mild flexion deformity at the PIP joint. A linear density is seen on the palmar surface of the soft tissues beneath the distal phalanx. This could be an old a vulsion or opaque foreign body. No bony mass seen. IMPRESSION: No acute findings. See above. POS: HOME
== END 2018-04-03 10:38 | disposition home or self-care (01) ==
LOC: BURRAD 10:37
PROVIDERS: ATTEND Family Medicine
DX: R22.32 Localized swelling, mass and lump, left upper limb (principal)

== ENCOUNTER 2018-08-18 11:57 | Emergency (ER) | payer MEDICARE ==
[2018-08-18] MEDS ORDERED: methylPREDNISolone Sod Succ/PF 125 MG/2 ML VIAL ONE (12:24)
[2018-08-18 12:31] LABS: Bilirubin Negative (Negative); Blood, Urine Trace (Negative); Clarity Clear (Clear); Glucose, Urine (Dipstick) Negative (Negative); Leukocyte Negative (Negative); Nitrite Negative (Negative); Protein, Urine (Dipstick) Negative (Neg-Trace); RBC/HPF 0-3 HPF (0-3); Specific Gravity, Urine 1.009 (1.005-1.030); Squamous Epithelial 0-3 HPF (0-3); Urobilinogen 0.2 mg/dL (0.2-1.0); WBC/HPF 0-3 HPF (0-3); pH, Urine 5.5 (5.0-9.0)
[2018-08-18 12:32] LABS: Bacteria/HPF Rare-Few HPF (None Seen)
[2018-08-18 12:33] LABS: #Basophils 0.1 thou/uL (0.0-0.2); #Lymphocytes 0.7 thou/uL (1.20-3.40); #Monocytes 0.3 thou/uL (0.11-0.59); %Basophils 0.6 % (0.0-1.0); %Eosinophils 0.3 % (0.0-10.0); %Lymphocytes 7.4 % (21.0-51.0); %Neutrophils 88.8 % (42.0-75.0); Hemoglobin 14.5 g/dL (14.0-18.0); Mean Corpuscular HGB CONC 34.7 g/dL (32.0-36.0); Mean Corpuscular Hemoglobin 31.7 pg (27.0-31.0); Mean Corpuscular Volume 91.2 fL (78.0-98.0); Mean Platelet Volume 8.9 fL (7.4-10.4); Platelet Count 345 thou/uL (130-400); RBC Distribution Width 11.8 % (11.5-14.5); White Blood Cell (WBC) Count 10.1 thou/uL (4.8-10.8)
[2018-08-18 12:43] LABS: Base Excess-Venous 6.3 mmol/L (0 (+/- 2.5)); Bicarbonate (HCO3v) 33.5 mmol/L (22.0-29.0); CO2 Tension (PvCO2) 56.1 mmHg (41.0-51.0); Calcium, Ionized 1.16 mmol/L (1.12-1.32); Hemoglobin - Calc 16.4 g/dL (12.0-18.0); O2 Tension (PvO2) 38.6 mmHg (35.0-45.0); Potassium 3.5 mmol/L (3.4-4.7); T. Carbon Dioxide 35.2 mmol/L (1.0-85.0); pH (Venous) 7.384 (7.35-7.45); vO2 Saturation-calc 70.6 % (94-98)
[2018-08-18 12:45] LABS: ALT (SGPT) 17 U/L (8-55); AST (SGOT) 23 U/L (5-34); Albumin 4.2 g/dL (3.4-4.8); Alkaline Phosphatase 103 U/L (40-150); Anion Gap 14 mmol/L (10-20); BUN (Urea Nitrogen) 10 mg/dL (8.4-25.7); Bilirubin, Total 0.5 mg/dL (0.2-1.2); Calc. Creatinine Clearance 0 mL/min (70-130); Calcium 9.7 mg/dL (7.8-10.44); Carbon Dioxide 31 mmol/L (23-31); Chloride 99 mmol/L (98-107); Estimated GFR-MDRD 75; Globulin 3.3 g/dL (2.4-3.5); Glucose 136 mg/dL (83-110); Potassium 3.7 mmol/L (3.5-5.1); Protein, Total 7.5 g/dL (5.8-8.1); Sodium 140 mmol/L (136-145)
[2018-08-18] MEDS ORDERED: Oseltamivir 75 MG CAP ONE (12:48)
--- NOTE | 2018-08-18 13:04 | RAD ---
PORTABLE CHEST: Date: 08/18/18 An AP portable film at 1143 hours is compared with the 02/07/18 study. The heart remains normal in size. The aorta has some calcification in it, but appears no different th an before. An area of scarring is seen in the left upper lobe and calcified granulomas are seen in th e lungs. The lungs appear emphysematous, but no focal pulmonary infiltrate to suggest pneumonia is se en. Fine detail would be best seen by a CT in this patient. There is no congestive change or pleural effusion to explain shortness of breath. IMPRESSION: Chronic changes, but no acute finding. POS: HOME
== END 2018-08-18 13:26 | disposition short-term general hospital (02) ==
LOC: BURERS 11:57
DX: J44.9 Chronic obstructive pulmonary disease, unspecified (principal); J10.1 Influenza due to other identified influenza virus with other respiratory manifestations; Z87.891 Personal history of nicotine dependence; F32.9 Major depressive disorder, single episode, unspecified; Z79.899 Other long term (current) drug therapy
CPT/HCPCS: 71045; 80053; 81003; 81015; 82330; 82803; 84484; 85014; 85025; 87804; 93005; 96374; J2930